=== PATIENT | female | born 1960 | race Caucasian/White ===

== ENCOUNTER → 2016-03-22 | Day surgery (SDC) | payer OTHER ==
[2016-03-05 11:46] LABS: BASO % 1.3 %; BASO ABS # 0.07 K/uL (0-0.2); COMPLETE YES; EOS % 3.6 %; HEMATOCRIT 38.9 % (37-47); IG% 0.2 %; LYMPH % 40.8 %; LYMPH ABS # 2.26 K/uL (1.2-3.4); MEAN CELL VOLUME 88.2 fL (80-100); MEAN CORPUSCULAR HGB CONC 32.9 g/dl (32-36); MEAN PLATELET VOLUME 10.9 fL (7.4-10.4); NEUT % 47.1 %; PLATELET COUNT 254 K/uL (130-400); RED BLOOD COUNT 4.41 M/uL (4.2-5.4); WHITE BLOOD COUNT 5.54 K/uL (4.8-10.8)
[2016-03-05 11:59] LABS: INR 0.9 (0.9-1.1)
[2016-03-16 11:49] VITALS: Ht 154.9 cm; Wt 81.8 kg
[~2016-03-22] VITALS: Ht 154.9 cm; Wt 81.8 kg
[~2016-03-22] MED LIST: ASPCH81X PO; ASPI325T45 PO; ATROPINE SULFATE 0.1 MG/ML 5ML SYR IV PRN; BUPIVACAINE/EPINEPHRINE 0.5% MPF 1:200,000 30 ML VIAL ONE; CLINDAMYCIN PHOS 150 MG/ML 2 ML VIAL IV SCH; DEXAMETHASONE SOD INJ 4 MG/ML VIAL ONE; EpHEDrine SULFATE INJ 50 MG/ML AMP IV PRN; EpINEphrine INJ 1MG/ML AMP 1 MG/ML AMP ONE; FENTANYL CITRATE INJ 50 MCG/1 ML 2 ML VIAL ONE; FIBER; HYDR-5688 PO; LACTATED RINGER'S 1000ML 1,000 ML IV SCH; LIDOCAINE HCL 1% 20 ML VIAL ONE; LIDOCAINE HCL 2% 2 ML VIAL (20MG/ML) ONE; METOCLOPRAMIDE HCL INJ 5 MG/ML 2 ML VIAL IV PRN; MIDAZOLAM HCL 1 MG/ML 2ML VIAL ONE; MULT-506 PO; MoRPHine SULFATE 4 MG/ML 1 ML CARP\\VIAL IV PRN; OMEP20CA59 PO; ONDANSETRON INJ 2 MG/ML 2 ML VIAL IV PRN; ONDANSETRON INJ 2 MG/ML 2 ML VIAL ONE; OXYCODONE/ACETAMINOPHEN 5-325 TAB PO PRN; PROPOFOL IV EMULSION 10 MG/ML 20 ML VIAL IV ONE; SODIUM CHLORIDE 0.9% 1000ML 1,000 ML IV SCH
--- NOTE | 2016-03-22 08:31 | History & Physical Bridge - [place] ---
H&P Re-Evaluation Bridge Note: I have examined the patient, reviewed the History & Physical and in the interval since the performance of the History & Physical I have noted the following changes of clinical significance: No changes noted
--- NOTE | 2016-03-22 10:07 | [facility] Post Operative Brief Note ---
Immediate Operative Summary Operative Date Mar 22, 2016. Pre-Operative Diagnosis Right knee medial meniscus tear, chrondomalcia Post-Operative Diagnosis same with loose body and synovitiis Procedure(s) Performed Right Knee Arthroscopy, Medial and lateral partial menisectomy, Extensive Debridement , Chondroplasty, Exam Under Anesthesia, Remove loose body Surgeon Dr Butterfield [employer] Field Coordinator Surgeon(s) Dr Kiara Coelho Estimated Blood Loss 10 Findings same Specimens 0 Drains none Anesthesia general Complication(s) None Disposition Recovery Room / PACU
--- NOTE | 2016-03-22 10:10 | Discharge Instructions-SurgCtr ---
Discharge Instructions Visit Reason for Visit: Right Knee Medial Meniscus Tear, Chondromalacia Discharge Discharge Diagnosis / Problem: right knee, medial/lateral meniscus tears, chondromalacia, loose body Discharge Goals Goal(s): Decrease discomfort, Improve function, Increase independence Activity Recommendations Activity Limitations: as noted below Lifting Limitations: gradually increase as tolerated Exercise/Sports Limitations: gradually increase as tolerated May Resume Sexual Activity: when tolerated Shower/Bathe: keep incision dry Driving or Machine Use: once off narcotic pain medication and range of motion improves Weightbearing Status: Right weightbearing (as tolerated) Anesthesia . Post Anesthesia Instructions: If you have had General Anesthesia or IV Sedation: * Do not drive today. * Resume driving when surgeon permits. * Do not make important decisions or sign legal documents today. * Call surgeon for: 1. Temperature elevations greater than 101 degrees F. 2. Uncontrollable pain. 3. Excessive bleeding. 4. Persistent nausea and vomiting. 5. Medication intolerance (nausea, vomiting or rash). * For nausea and vomiting use only clear liquids such as: tea, soda, bouillon until nausea subsides, then gradually increase diet as tolerated. * If you have any concerns or questions, call your surgeon's office. If physician is unavailable and it is an emergency, call 911 or go to the nearest emergency room. . Instructions / Follow-Up Instructions / Follow-Up DIET: * Resume previous diet. MEDICATIONS: * Please take your prescriptions as instructed at your pre-op appointment and/ or see medication discharge instructions listed above. * If concerns develop, call your physician's office at . SPECIAL CARE INSTRUCTIONS: * Ice/Elevate as instructed. * Keep dressing clean, dry, intact. * Your surgical extremity may be discolored due to prepping agents used on the skin. A bluish-green tint is a normal variant and should not cause alarm. Call your doctor at [phone] if: * Temperature above 101 degrees * Pain not relieved by pain medicine ordered * There is increased drainage or redness from any incision * You have any unanswered questions, problems or concerns. FOLLOW UP VISIT: * If not already scheduled, please call the office at to schedule a follow-up appointment. Diet Recommendations Home Diet: resume previous diet Procedures Procedures Performed: Right Knee Arthroscopy, Medial and lateral partial menisectomy, Extensive Debridement , Chondroplasty, Exam Under Anesthesia, Remove loose body Pending Studies Studies pending at discharge: no Medical Emergencies . Who to Call and When: Medical Emergencies: If at any time you feel your situation is an emergency, please call 911 immediately. . Non-Emergent Contact Non-Emergency issues call your: Primary Care Provider . . "Provider Documentation" section prepared by Akin Lemus. [place] Drug Monitoring Program Search Results: no issues identified
--- NOTE | 2016-03-22 10:14 | [facility] Operative Report ---
Operative Report Operative Date Mar 22, 2016. Pre-Operative Diagnosis Right knee medial meniscus tear, chrondomalcia Post-Operative Diagnosis same with loose body and synovitiis Procedure(s) Performed 1) Right Knee Arthroscopy, Extensive Debridement. 2) Chondroplasty: P, MC, LTP with Medial and lateral partial menisectomies. 3) Removal loose body. 4) Exam Under Anesthesia. Surgeon Dr Butterfield Coach Wirer Surgeon(s) Dr Kiara Coelho Estimated Blood Loss 10 Findings The right knee was examined under anesthesia. Range of motion was 0-130. Ligamentous examination exhibited: stable Flo, posterior drawer, varus and valgus stress at 0 & 30 degrees. ARTHROSCOPIC FINDINGS: There was significant synovitis in the suprapatellar pouch and loose body. 1) PATELLOFEMORAL JOINT: The articular cartilage of the Patella had Outerbridge type II changes and Trochlea type I changes. There was an engaging medial plica. 2) GUTTERS: No loose bodies. 3) MEDIAL COMPARTMENT: The articular cartilage of the femur and Tibia had Outerbridge type IV changes. The femur was significant from full extension down to 90 of flexion. The tibia had full thickness articular cartilage loss from the medial aspect near the apex anteriorly. The medial meniscus had degenerative tear posteriorly, at the apex, and anteriorly.. 4) ACL/PCL: They were both visualized and probed to be intact. 5) LATERAL COMPARTMENT: The lateral compartment was then entered in a figure-of- four position. The femoral articular cartilage was normal and tibial articular cartilage had Outerbridge type III changes centrally. The lateral meniscus had degenerative fraying from the posterior horn all the way to the anterior horn. Fluids (cc crystalloids) 800 Specimens 0 Drains n/a Anesthesia LMA Complication(s) None Disposition Recovery Room / PACU (Stable) Implants n/a Indications This is a 55-year-old female who has clinical and MRI findings consistent with meniscus tear and chondromalacia. I recommended that a right knee arthroscopy be performed with meniscus repair vs debridement, possible chondroplasty versus microfracture. The patient understands the risks of surgery, which include but not limited to: bleeding, infection, re-operation, damage to nerves and arteries , continued knee pain, progression of OA, DVT, and a 2-5% risk of becoming worse after surgery. The patient understands all of these instructions and explanations, all of his questions have been satisfactorily addressed and the patient has elected to proceed. Informed consent was signed. Description of Procedure The patient was taken to the Operating Room and placed in the supine position after general anesthetic was administered. My initials and a multidisciplinary time-out were used to identify the right leg as the correct operative limb. Prior to the incision, 600 mg of intravenous clindamycin was given. The right knee was then injected with 20cc of a 50:50 mix of 1% Lidocaine plain and 0.5% Bupivacaine with epinephrine in a sterile fashion using the superolateral portal. The right leg was then prepped and draped in a standard sterile fashion. The anterolateral, anteromedial, and superolateral portals were injected with the 50:50 mixture noted above, for a total of 10cc, in the standard fashion. An anterolateral arthroscopic portal was established with an 11-blade. Next, the arthroscope was introduced into the knee. A diagnostic arthroscopy commenced and both the superolateral and anteromedial portals were established under direct visualization using a spinal needle followed by an 11 blade in the standard fashion. The above findings were observed during the diagnostic arthroscopy. The synovitis and anterior fat pad were debrided as they were encounter with mechanical shaver and Coolcut. The loose body was removed through the arthroscopic trocar as it was encountered. The medial plicae was excised with a combination of hand punches, mechanical shaver and Coolcut. The articular cartilage damage was debrided back to stable margins as they were encountered with mechanical shaver. The medial and lateral meniscus tears were evaluated and found to be irreparable and were debrided back to stable margin with hand punches, and mechanical shaver. The knee was copiously irrigated. The arthroscopic instruments were then removed. The portals were closed with 3-0 Prolene in a standard fashion. The wound was dressed with Xeroform gauze, sterile gauze, ABDs, sterile Webril, and a foot to thigh Jamie bandage. The patient was then transferred to the Recovery Room in stable condition. The sponge and needle counts were correct. Post-op Instructions: The patient will be WBAT. The patient may remove the operative dressing on Post -Op Day #2 and apply Band-Aids to the wounds. The patient may shower in 72 hours and is to wear the REY for 2 weeks on the operative limb. The patient is to use the pain medicine as needed and take the ASA for 2 weeks. The patient was also given a handout for home quad strengthening and seated self-assisted ROM exercises, which they may begin tomorrow. The patient was given a prescription for PT and is scheduled for an appointment later this week. The patient is to follow up with me in 10-15 days. I attest to the content of the Intraoperative Record and any orders documented therein. Any exceptions are noted below.
[2016-03-22] MEDS: FENTANYL CITRATE INJ 50 MCG/1 ML 2 ML VIAL IV PRN ×2 (10:40→11:02)
[2016-03-22 11:28] VITALS: TEMP 36.5
[2016-03-22 12:05] VITALS: BP 129/80; PULSE 77; O2SAT 95
--- NOTE | 2016-03-22 12:09 | Anesthesia Progress Nt - [facility] ---
Anesthesia Post Op Note Date & Time Mar 22, 2016 at 12:09 Vital Signs Pain Intensity: 0 Vital Signs Past 12 Hours Date Time Temp Pulse Resp B/P Pulse Ox O2 Delivery O2 Flow Rate FiO2 03/22/16 12:05 77 16 129/80 95 Room Air 03/22/16 11:28 36.5 75 16 128/78 95 Room Air 03/22/16 11:18 110/81 03/22/16 11:17 75 14 03/22/16 11:17 75 14 90 03/22/16 11:14 113/70 03/22/16 11:12 83 14 03/22/16 11:12 84 14 92 03/22/16 11:11 75 20 96 03/22/16 11:11 78 20 03/22/16 11:09 137/74 03/22/16 11:06 78 16 03/22/16 11:06 79 16 95 03/22/16 11:03 132/77 03/22/16 11:01 77 11 03/22/16 11:01 76 11 95 03/22/16 11:00 77 12 03/22/16 11:00 77 12 95 03/22/16 10:58 121/80 03/22/16 10:55 82 16 89 03/22/16 10:55 83 16 03/22/16 10:54 36.6 78 16 121/80 95 Mask 3 03/22/16 10:54 36.8 77 16 130/72 94 03/22/16 10:45 76 11 03/22/16 10:45 77 11 95 03/22/16 10:43 123/76 03/22/16 10:40 83 16 03/22/16 10:40 83 16 96 03/22/16 10:38 132/74 03/22/16 10:35 82 16 03/22/16 10:35 82 16 98 03/22/16 10:34 87 15 96 03/22/16 10:34 87 15 03/22/16 10:33 131/76 03/22/16 10:29 86 16 03/22/16 10:29 84 16 97 03/22/16 10:28 129/74 03/22/16 10:24 91 17 96 03/22/16 10:24 89 17 03/22/16 10:23 127/74 03/22/16 10:22 88 16 03/22/16 10:22 36.8 88 20 127/73 95 Mask 8 03/22/16 10:22 87 16 97 03/22/16 08:14 37.0 90 20 139/72 95 Room Air Notes Mental Status: alert / awake / arousable, participated in evaluation Pt Amnestic to Procedure: Yes Nausea / Vomiting: adequately controlled Pain: adequately controlled Airway Patency, RR, SpO2: stable & adequate BP & HR: stable & adequate Hydration State: stable & adequate Anesthetic Complications: no major complications apparent
== END | disposition home or self-care (01) ==
LOC: X.SURG 07:54
PROVIDERS: ATTEND Orthopaedic Surgery Sports Medicine
DX: M23.351 Other meniscus derangements, posterior horn of lateral meniscus, right knee (principal); M23.306 Other meniscus derangements, unspecified meniscus, right knee; M94.261 Chondromalacia, right knee; M23.41 Loose body in knee, right knee; E66.9 Obesity, unspecified; M25.561 Pain in right knee

== ENCOUNTER → 2016-06-29 | Day surgery (SDC) | payer OTHER ==
[2016-06-14 11:02] VITALS: BMI 34.0
[~2016-06-29] VITALS: Ht 154.9 cm; Wt 81.8 kg
[~2016-06-29] MED LIST changes: -ASPI325T45 PO; -ATROPINE SULFATE 0.1 MG/ML 5ML SYR IV PRN; -BUPIVACAINE/EPINEPHRINE 0.5% MPF 1:200,000 30 ML VIAL ONE; -CLINDAMYCIN PHOS 150 MG/ML 2 ML VIAL IV SCH; -DEXAMETHASONE SOD INJ 4 MG/ML VIAL ONE; -EpHEDrine SULFATE INJ 50 MG/ML AMP IV PRN; -EpINEphrine INJ 1MG/ML AMP 1 MG/ML AMP ONE; -FENTANYL CITRATE INJ 50 MCG/1 ML 2 ML VIAL ONE; -FIBER; -HYDR-5688 PO; -LACTATED RINGER'S 1000ML 1,000 ML IV SCH; -LIDOCAINE HCL 1% 20 ML VIAL ONE; -METOCLOPRAMIDE HCL INJ 5 MG/ML 2 ML VIAL IV PRN; -MIDAZOLAM HCL 1 MG/ML 2ML VIAL ONE; -MoRPHine SULFATE 4 MG/ML 1 ML CARP\\VIAL IV PRN; -ONDANSETRON INJ 2 MG/ML 2 ML VIAL IV PRN; -ONDANSETRON INJ 2 MG/ML 2 ML VIAL ONE; -OXYCODONE/ACETAMINOPHEN 5-325 TAB PO PRN; -SODIUM CHLORIDE 0.9% 1000ML 1,000 ML IV SCH
[2016-06-29 10:53] VITALS: Ht 154.9 cm; Wt 81.8 kg
--- NOTE | 2016-06-29 11:13 | Endo History and Physical ---
History & Physical Date of Service: Jun 29, 2016. Chief Complaint: FAMILY HX COLON CANCER (MOTHER) ,SCREENINGFOR COLON CANCER Referring Physician: DR EGAN History of Present Illness 55 yo CF who presents for colonoscopy secondary to family history of colon cancer. Past Surgical History Hx Cardiac Surgery: No Hx Internal Defibrillator: No Hx Pacemaker: No Hx Abdominal Surgery: Yes (REN) Hx of Implantable Prosthesis: No Hx Post-Op Nausea and Vomiting: No Hx Cancer Surgery: No Hx Thoracic Surgery: No Hx Orthopedic: Yes (RT KNEE ARTHROSCOPY) Hx Urinary Tract Surgery: No Family History Colon CA Social History Smoking Status: Never Smoker Hx Substance Use: No Hx Alcohol Use: No Allergies Coded Allergies: Penicillins (Verified Allergy, Unknown, RASH, 03/22/16) Current Medications Reported Home Medications Medications Dose Route/Sig Max Daily Dose Days Date Category Aspirin Chewable (Aspirin) 81 Mg Chew 81 Mg PO QAM 06/14/16 Reported Multivitamin (Multivitamins) Tab 1 Tab PO QAM 03/16/16 Reported Prilosec (Omeprazole) 20 Mg Capcr 20 Mg PO QAM 03/16/16 Reported Vital Signs Weight (Kilograms): 81.82 Height (Feet): 5 Height (Inches): 1 Date Time Temp Pulse Resp B/P Pulse Ox O2 Delivery O2 Flow Rate FiO2 06/29/16 10:55 36.9 90 20 123/69 94 Room Air Physical Exam General Appearance: WD/WN, no apparent distress Respiratory/Chest: Auscultation: breath sounds normal Cardiovascular: Heart Auscultation: RRR Abdomen: Bowel Sounds: normal Inspection & Palpation: soft, non-distended, no tenderness, guarding & rebound Assessment and Plan Assessment: 55 yo CF who presents for colonoscopy secondary to family history of colon cancer. Plan: Proceed with colonoscopy.
--- NOTE | 2016-06-29 12:51 | GI REPORT ---
Procedure Date: 06/29/2016 11:59 AM Procedure: Colonoscopy Indications: Family history of colon cancer in a first-degree relative Medicines: Monitored Anesthesia Care Complications: No immediate complications. Estimated Blood Loss: Estimated blood loss: none. Procedure: Pre-Anesthesia Assessment: - Prior to the procedure, a History and Physical was performed, and patient medications and allergies were reviewed. The patient's tolerance of previous anesthesia was also reviewed. The risks and benefits of the procedure and the sedation options and risks were discussed with the patient. All questions were answered, and informed consent was obtained. Prior Anticoagulants: The patient has taken aspirin, last dose was 3 days prior to procedure. ASA Grade Assessment: II - A patient with mild systemic disease. After reviewing the risks and benefits, the patient was deemed in satisfactory condition to undergo the procedure. After I obtained informed consent, the scope was passed under direct vision. Throughout the procedure, the patient's blood pressure, pulse, and oxygen saturations were monitored continuously. The scope was introduced through the anus and advanced to the terminal ileum. The colonoscopy was performed without difficulty. The patient tolerated the procedure well. The quality of the bowel preparation was good. The terminal ileum, ileocecal valve, appendiceal orifice, and rectum were photographed. Findings: A 5 mm polyp was found in the sigmoid colon. The polyp was sessile. The polyp was removed with a hot snare. Resection and retrieval were complete. Non-bleeding internal hemorrhoids were found during retroflexion. The hemorrhoids were small. Impression: - One 5 mm polyp in the sigmoid colon, removed with a hot snare. Resected and retrieved. - Non-bleeding internal hemorrhoids. Recommendation: - Resume previous diet. - Continue present medications. - Repeat colonoscopy for surveillance based on pathology results. - Return to primary care physician as previously scheduled. Reinaldo Mcnair DO 06/29/2016 12:50:31 PM This report has been signed electronically. Note Initiated On: 06/29/2016 11:59 AM I attest to the content of the Intraoperative Record and orders documented therein, exceptions below
--- NOTE | 2016-06-29 12:53 | Discharge Instructions ---
Endoscopy Patient Instructions Date / Procedure(s) Performed Jun 29, 2016. Colonoscopy Allergy Information Coded Allergies: Penicillins (Verified Allergy, Unknown, RASH, 03/22/16) Discharge Date / Findings Jun 29, 2016. Colon polyp Internal hemorrhoids Medication Instructions Stopped Medication(s): ASPIRIN LAST DOSE 06/26/16 MULTIVITAMIN LAST DOSE 06/26/16 PRILOSEC LAST DOSE 06/26/16 OK to resume all medications today as prescribed Reported Home Medications Medications Dose Route/Sig Max Daily Dose Days Date Category Aspirin Chewable (Aspirin) 81 Mg Chew 81 Mg PO QAM 06/14/16 Reported Multivitamin (Multivitamins) Tab 1 Tab PO QAM 03/16/16 Reported Prilosec (Omeprazole) 20 Mg Capcr 20 Mg PO QAM 03/16/16 Reported Provider Instructions Activity Restrictions - No exercising or heavy lifting for 24 hours. - Do not drink alcohol the day of the procedure. - Do not drive a car or operate machinery until the day after the procedure. - Do not make any important decisions or sign important papers in 24 hours after the procedure. Following Day: - Return to full activity which may include returning to work/school. Diet Start your diet with liquids and light foods (jello, soup, juice, toast). Then eat your usual diet if not nauseated. Treatment For Common After Affects For mild abdominal pain, bloating, or excessive gas: - Rest - Eat lightly - Lie on right side Follow-Up Information Follow-up with DR EGAN as scheduled Anesthesia Information What You Should Know You have had a procedure that required some medicine to reduce anxiety and discomfort. This treatment is called moderate sedation. After receiving the treatment, you may be sleepy, but you will be able to breathe on your own. The effects of the treatment may last for several hours. Follow these instructions along with Activity/Diet recommendations noted above: * Do NOT do anything where dizziness or clumsiness would be dangerous. * Rest quietly at home today, then you can be up and about tomorrow. * Have a responsible person stay with you the rest of today. * You may have had an I.V. today. If so, you may take the dressing off later today. Recommendations Call your doctor if: * Trouble breathing * Continuous vomiting for more than 24 hours * Temperature above 101 degrees * Severe abdominal pain or bloating * Pain not relieved by pain medicine ordered * There is increased drainage or redness from any incision * A large amount of rectal bleeding greater than 2-3 tablespoons. (If you had a polyp/s removed or have hemorrhoids, a small amount of blood - from the rectum is to be expected.) * You have any unanswered questions or concerns. IN THE EVENT OF A SERIOUS EMERGENCY, GO TO THE NEAREST EMERGENCY ROOM Your discharge instructions were prepared by provider Reinaldo Mcnair. Patient Instructions Signature Page Clare Valdovinos Patient (or Guardian) Signature/Date: I have read and understand the instructions given to me by my caregivers. Caregiver/RN/Doctor Signature/Date: The above-named patient and/or guardian has received patient instructions on this date. + Original Patient Signature Page (only) stays with chart. Please make copy for patient.
--- NOTE | 2016-06-29 13:01 | Anesthesiology Progress Note ---
Anesthesia Post Op Note Date & Time Jun 29, 2016 at 13:00 Vital Signs Pain Intensity: 0 Vital Signs Past 12 Hours Date Time Temp Pulse Resp B/P Pulse Ox O2 Delivery O2 Flow Rate FiO2 06/29/16 12:48 36.9 95 20 99/62 95 Room Air 06/29/16 10:55 36.9 90 20 123/69 94 Room Air Notes Mental Status: alert / awake / arousable, participated in evaluation Pt Amnestic to Procedure: Yes Nausea / Vomiting: adequately controlled Pain: adequately controlled Airway Patency, RR, SpO2: stable & adequate BP & HR: stable & adequate Hydration State: stable & adequate Anesthetic Complications: no major complications apparent
[2016-06-29 13:17] VITALS: BP 103/81; PULSE 84; O2SAT 9
== END | disposition home or self-care (01) ==
LOC: C.GI 10:29
PROVIDERS: ATTEND Internal Medicine
DX: Z12.11 Encounter for screening for malignant neoplasm of colon (principal); D12.5 Benign neoplasm of sigmoid colon; K64.8 Other hemorrhoids; Z80.0 Family history of malignant neoplasm of digestive organs; Z88.0 Allergy status to penicillin; E66.9 Obesity, unspecified; Z68.34 Body mass index [BMI] 34.0-34.9, adult; Z98.890 Other specified postprocedural states

== ENCOUNTER → 2016-07-20 | Outpatient (CLI) | payer OTHER ==
[~2016-07-20] MED LIST changes: +ATOR10TA82 PO; +CYAN50TA2 PO; +FIBE1CHW8 PO; +GLC/500 PO; +IBUP-1050 PO; -LIDOCAINE HCL 2% 2 ML VIAL (20MG/ML) ONE; -PROPOFOL IV EMULSION 10 MG/ML 20 ML VIAL IV ONE
--- NOTE | 2016-07-20 16:04 | MAMMOGRAPHY REPORT ---
BILATERAL DIGITAL SCREENING MAMMOGRAM TOMOSYNTHESIS WITH CAD: 07/20/2016 CLINICAL HISTORY: Routine screening. Patient has no complaints. TECHNIQUE: Breast tomosynthesis in addition to standard 2D mammography was performed. Current study was also evaluated with a Computer Aided Detection (CAD) system. COMPARISON: Comparison is made to exams dated: 07/17/2015 ultrasound and 07/17/2015 mammogram - [facility]. BREAST COMPOSITION: There are scattered areas of fibroglandular density in both breasts. FINDINGS: The parenchymal pattern is unchanged. No developing mass, architectural distortion or clu ster of suspicious microcalcifications is seen in either breast. IMPRESSION: ACR BI-RADS CATEGORY 2: BENIGN There is no mammographic evidence of malignancy. A 1 year screening mammogram is recommended. The p atient will receive written notification of the results. Approximately 10% of breast cancers are not detected with mammography. A negative mammographic repor t should not delay biopsy if a clinically suggestive mass is present. Edita Woodward M.D. ay/:07/20/2016 15:25:43 Collar Cutter: Farzana VALADEZ(R)(Thad), [facility] letter sent: Normal 1/2 BI-RADS Code: ACR BI-RADS Category 2: Benign
== END | disposition home or self-care (01) ==
LOC: C.MAMM 14:35
PROVIDERS: ATTEND Internal Medicine
DX: Z12.31 Encounter for screening mammogram for malignant neoplasm of breast (principal)

== ENCOUNTER → 2016-08-23 | Outpatient (CLI) | payer OTHER ==
[2016-08-23 12:34] LABS: ESTIMATED AVERAGE GLUCOSE 134 mg/dl; HA1C FLAG Normal (Normal)
[2016-08-23 12:35] LABS: CHOLESTEROL/HDL RATIO 4.8
== END ==
LOC: C.LABBFT 08:52
PROVIDERS: ATTEND Physician Assistant Medical
DX: E78.5 Hyperlipidemia, unspecified (principal); R73.01 Impaired fasting glucose

== ENCOUNTER → 2016-09-28 | Outpatient (CLI) | payer OTHER ==
[~2016-09-28] MED LIST changes: -ATOR10TA82 PO; -CYAN50TA2 PO; -FIBE1CHW8 PO; -GLC/500 PO; -IBUP-1050 PO
== END | disposition home or self-care (01) ==
LOC: C.MAMM 13:35
PROVIDERS: ATTEND Internal Medicine
DX: Z78.0 Asymptomatic menopausal state (principal)

== ENCOUNTER → 2016-12-28 | Outpatient (CLI) | payer OTHER ==
--- NOTE | 2016-12-28 13:26 | DIAGNOSTIC IMAGING REPORT ---
L FOOT MIN 3 VIEWS HISTORY: 56 years-old Female LEFT FOOT PAIN acute left foot pain. COMPARISON: None available TECHNIQUE: 3 views of the left foot. FINDINGS: Moderate plantar enthesophyte of the calcaneus. Mild dorsal midfoot spurring. Mild interphalangeal and first metatarsal-phalangeal degenerative changes. Os intermetatarsum noted interposed between the first and second metatarsal bases. There is mild medial and lateral cortical thickening of the fourth mid diaphyseal metatarsal. No acute fracture or dislocation. No opaque foreign body. IMPRESSION: 1. No acute fracture or dislocation. 2. Mild medial and lateral cortical thickening of the mid diaphyseal fourth metatarsal may reflect healing stress response/healing stress fracture. 3. Mild degenerative changes as above. The above report was generated using voice recognition software. It may contain grammatical, syntax or spelling errors. Electronically signed by: Keaton Joaquin M.D. 12/28/2016 1:25 PM Dictated Date/Time: 12/28/2016 1:21 PM
== END | disposition home or self-care (01) ==
LOC: C.RDSM 13:15
PROVIDERS: ATTEND Physician Assistant
DX: R52 Pain, unspecified (principal)

== ENCOUNTER → 2016-12-29 | Outpatient (CLI) | payer OTHER ==
[2016-12-29 12:50] LABS: ALT/SGPT 30 U/L (12-78); AST/SGOT 16 U/L (15-37); BLOOD UREA NITROGEN 14 mg/dl (7-18); BUN/CREATININE RATIO 14.3 (10-20); CALCIUM 8.8 mg/dl (8.5-10.1); CARBON DIOXIDE 25 mmol/L (21-32); CHLORIDE 107 mmol/L (98-107); CREATININE 0.94 mg/dl (0.60-1.20); GLUCOSE 130 mg/dl (70-99); POTASSIUM 4.4 mmol/L (3.5-5.1); SODIUM 141 mmol/L (136-145)
[2016-12-29 12:51] LABS: ESTIMATED AVERAGE GLUCOSE 128 mg/dl; HA1C FLAG Normal (Normal)
[2016-12-29 12:53] LABS: ALB/GLOB RATIO 0.9 (0.9-2); ALKALINE PHOSPHATASE 117 U/L (45-117); CHOLESTEROL 143 mg/dl (0-200); CHOLESTEROL/HDL RATIO 2.9; HDL CHOLESTEROL 49 mg/dl; LDL CHOLESTEROL CALCULATED 70 mg/dl; TRIGLYCERIDES 118 mg/dl (0-150); VERY LOW DENSITY LIPOPROT CALC 24 mg/dl
== END | disposition home or self-care (01) ==
LOC: C.LABBFT 08:12
PROVIDERS: ATTEND Internal Medicine
DX: E78.5 Hyperlipidemia, unspecified (principal); R73.01 Impaired fasting glucose

== ENCOUNTER 2017-02-17 11:08 | Emergency (ER) | payer OTHER ==
[~2017-02-17] VITALS: Ht 154.9 cm; Wt 83.4 kg
[2017-02-17 11:12] VITALS: TEMP 36.7; Ht 154.9 cm; Wt 83.4 kg
[2017-02-17 12:11] LABS: HEMATOCRIT 41.3 % (37-47); MEAN CELL VOLUME 89.4 fL (80-100); MEAN CORPUSCULAR HGB CONC 32.4 g/dl (32-36); MEAN PLATELET VOLUME 10.3 fL (7.4-10.4); PLATELET COUNT 265 K/uL (130-400); RED BLOOD COUNT 4.62 M/uL (4.2-5.4); WHITE BLOOD COUNT 7.25 K/uL (4.8-10.8)
[2017-02-17 12:16] LABS: PROTHROMBIN TIME (PATIENT) 10.1 SECONDS (9.0-12.0)
[2017-02-17] MEDS ORDERED: ASPIRIN 81 MG CHEW PO STA (12:18)
[2017-02-17] MEDS ORDERED: LIDOCAINE HCL 2% VISC SOLN 20 ML UDC PO STA (12:22)
[2017-02-17] MEDS ORDERED: ALUMINUM/MAGNESIUM SUSP 30 ML UDC PO STA (12:22)
[2017-02-17 12:28] LABS: BUN/CREATININE RATIO 16.4 (10-20); CALCIUM 9.1 mg/dl (8.5-10.1); CREATININE 0.78 mg/dl (0.60-1.20); POTASSIUM 3.9 mmol/L (3.5-5.1)
[2017-02-17] MEDS ORDERED: IBUP-1050 PO (12:31)
--- NOTE | 2017-02-17 12:32 | EMERGENCY ROOM VISIT NOTE ---
History Report prepared by Aaron: Genesis Rees Under the Supervision of: Dr. Jacquelin Huang M.D. First contact with patient: 12:09 Chief Complaint: CHEST PAIN Stated Complaint: CHEST PAIN, INDIGESTION, CLAMMY HANDS Nursing Triage Summary: patient states she has had chest pains since tuesday off and on. patient denies any shortness of breath. hx of acid relux. History of Present Illness The patient is a 56 year old female who presents to the Emergency Room with complaints of persistent chest pain that began this morning when she woke. She currently rates her discomfort as a 2/10 in severity. The patient describes her pain as indigestion. She reports that her left hand was clammy and noted discomfort to the left hand. The patient denies ever having this in the past. She denies any active medical problems. The patient states that she takes 81 mg of aspirin daily. She reports that she takes Ibuprofen 3-4 times per week for knee pain. The patient reports increased fatigue. She states that she becomes short of breath with exertion. Source of History: patient Onset: this morning when she woke Position: chest Symptom Intensity: 2/10 Quality: other (indigestion) Timing: other (persistent) Associated Symptoms: + SOB (with exertion), + fatigue Review of Systems See HPI for pertinent positives & negatives. A total of 10 systems reviewed and were otherwise negative. Past Medical & Surgical Surgical Problems: (1) H/O: hysterectomy (2) Hx of arthroscopy of right knee Family History FH: colon cancer Social History Smoking Status: Never Smoker Smokeless Tobacco Use: No Alcohol Use: none Marital Status: Housing Status: lives with significant other Occupation Status: employed Current/Historical Medications Scheduled Atorvastatin (Lipitor), 10 MG PO PM Cyanocobalamin (Vitamin B-12), Unknown Dose PO DAILY Fiber (Fiber Adult Gummies 2 gm), 1 TAB PO DAILY Ibuprofen (Advil), 400-600 MG PO DAILY Metformin Hcl (Glucophage), 500 MG PO BID Multivitamin (Multivitamin), 1 TAB PO QAM Omeprazole (Prilosec), 40 MG PO QAM Allergies Coded Allergies: Penicillins (Verified Allergy, Unknown, RASH, 02/17/17) Physical Exam Vital Signs Date Time Temp Pulse Resp B/P (MAP) Pulse Ox O2 Delivery O2 Flow Rate FiO2 02/17/17 15:03 86 128/68 94 02/17/17 14:13 127/66 02/17/17 14:08 84 16 94 02/17/17 13:38 79 16 97 02/17/17 13:08 78 18 96 02/17/17 12:38 79 18 93 02/17/17 12:29 130/68 02/17/17 12:08 82 02/17/17 12:08 80 18 92 02/17/17 11:39 80 129/74 92 Room Air 02/17/17 11:30 129/74 02/17/17 11:17 95 Room Air 02/17/17 11:12 36.7 90 18 129/73 95 Room Air Physical Exam Vital signs reviewed. General: Well-appearing female, in no significant distress. HEENT: No scleral icterus, PERRLA, neck supple. Atraumatic. Cardiovascular: Regular rate and rhythm, no extra sounds. Pulmonary: Clear to auscultation bilaterally, normal work of breathing. Abdomen: Soft, nontender, nondistended, positive bowel sounds. Musculoskeletal: Atraumatic, no peripheral edema. Neurologic: Patient awake alert and oriented x 3, full strength in all 4 extremities. Cranial nerves 2 through 12 grossly intact. Skin: Warm, dry, no rash Medical Decision & Procedures ER Provider Diagnostic Interpretation: X-ray results as stated below per interpretation by me and the radiologist: CHEST ONE VIEW PORTABLE CLINICAL HISTORY: CHEST PAIN dyspnea COMPARISON STUDY: No previous studies for comparison. FINDINGS: The bones soft tissues and hemidiaphragms are normal. The cardiomediastinal silhouette is normal. The lungs are clear. The pulmonary vasculature is normal. IMPRESSION: Negative chest. The above report was generated using voice recognition software. It may contain grammatical, syntax or spelling errors. Electronically signed by: Real Kingsley M.D. 02/17/2017 12:36 PM Dictated Date/Time: 02/17/2017 12:36 PM Laboratory Results 02/17/17 11:30 02/17/17 11:30 Test 02/17/17 11:30 02/17/17 14:11 Red Blood Count 4.62 M/uL (4.2-5.4) Mean Corpuscular Volume 89.4 fL (80-100) Mean Corpuscular Hemoglobin 29.0 pg (25-34) Mean Corpuscular Hemoglobin Concent 32.4 g/dl (32-36) RDW Standard Deviation 41.6 fL (36.4-46.3) RDW Coefficient of Variation 12.9 % (11.5-14.5) Mean Platelet Volume 10.3 fL (7.4-10.4) Prothrombin Time 10.1 SECONDS (9.0-12.0) Prothromb Time International Ratio 1.0 (0.9-1.1) Activated Partial Thromboplast Time 25.4 SECONDS (21.0-31.0) Partial Thromboplastin Ratio 1.0 Anion Gap 4.0 mmol/L (3-11) Est Creatinine Clear Calc Drug Dose 77.9 ml/min Estimated GFR () 97.8 Estimated GFR (Non- 84.4 BUN/Creatinine Ratio 16.4 (10-20) Calcium Level 9.1 mg/dl (8.5-10.1) Total Bilirubin 0.6 mg/dl (0.2-1) Aspartate Amino Transf (AST/SGOT) 18 U/L (15-37) Alanine Aminotransferase (ALT/SGPT) 38 U/L (12-78) Alkaline Phosphatase 116 U/L (45-117) Total Creatine Kinase 107 U/L (26-192) Creatine Kinase MB 0.8 ng/ml (0.5-3.6) Creatine Kinase MB Ratio 0.7 (0-3.0) Total Protein 8.0 gm/dl (6.4-8.2) Albumin 3.7 gm/dl (3.4-5.0) Globulin 4.3 gm/dl (2.5-4.0) Albumin/Globulin Ratio 0.9 (0.9-2) Thyroid Stimulating Hormone (TSH) 1.150 uIu/ml (0.300-4.500) Free Thyroxine 1.05 ng/dl (0.80-1.60) Free Triiodothyronine 3.29 pg/ml (2.30-4.20) Bedside Troponin I < 0.030 ng/ml (0-0.045) Laboratory results per my review. Medications Administered Medications (Trade) Dose Ordered Sig/Jose Route Start Time Stop Time Status Last Admin Dose Admin Lidocaine HCl (Viscous Lidocaine 2% Soln) 10 ml NOW STAT PO 12/7/17 12:22 02/17/17 12:23 DC 02/17/17 12:29 10 ML Al Hydroxide/Mg Hydroxide (Maalox Susp) 30 ml NOW STAT PO 02/17/17 12:22 02/17/17 12:23 DC 02/17/17 12:29 30 ML ECG Indication: chest pain Rate (beats per minute): 76 Rhythm: normal sinus Findings: no acute ischemic change, no ectopy ED Course 1215: Past medical records reviewed. The patient was evaluated in room B9. A complete history and physical examination was performed. 1218: Ordered Aspirin 324 mg PO. 1222: Ordered Maalox Susp 30 ml PO, Lidocaine HCl 10 ml PO. 1421: I reevaluated the patient and she is resting comfortably. I discussed the test results with her and I discussed the treatment plan. She verbalized complete understanding and agreement. She is ready to go home. Medical Decision DDx: Acute coronary syndrome, pulmonary embolus, aortic dissection, musculoskeletal pain, pneumonia, pleural effusion, pneumothorax This pt was evaluated and appeared to be in no distress. IV access was obtained and lab work was drawn. Pt was placed on the pairer substandard. EKG is non-ischemic. CXR is clear. Pt was NOT given ASA as this sounds more like a gastritis during questioning. She was given a GI cocktail. Pt had 2 negative troponins and was advised to stop ASA as this is self-prescribed and will switch from ibuprofen to tylenol as needed for pain. She will continue her omeprazole and use zantac as needed. She was referred to her PCP for further cardiac w/u as needed. She was d/c to her 's care and will return to the ED for further management. Medication Reconcilliation Current Medication List: was personally reviewed by me Impression Primary Impression: Atypical chest pain Additional Impression: NSAID induced gastritis Scribe Attestation The scribe's documentation has been prepared under my direction and personally reviewed by me in its entirety. I confirm that the note above accurately reflects all work, treatment, procedures, and medical decision making performed by me. Departure Information Dispostion Home / Self-Care Referrals Kenny Saab M.D. (PCP) Forms Call Back Authorization, HOME CARE DOCUMENTATION FORM, IMPORTANT VISIT INFORMATION Patient Instructions [facility] Additional Instructions Diagnosis: NSAID gastritis, atypical chest pain Please stop taking aspirin and ibuprofen. Continue omeprazole as prescribed. Zantac 150 mg twice daily as needed for gastritis. Follow-up with your physician for reevaluation and consideration of further cardiac testing. Return to the emergency department for worsening of symptoms or any medical concerns. Problem Qualifiers
[2017-02-17 12:33] LABS: ALB/GLOB RATIO 0.9 (0.9-2); CKMB/CK RATIO 0.7 (0-3.0)
[2017-02-17] MEDS ORDERED: CYAN50TA2 PO (12:33)
[2017-02-17] MEDS ORDERED: ATOR10TA82 PO (12:33)
[2017-02-17] MEDS ORDERED: GLC/500 PO (12:33)
[2017-02-17] MEDS ORDERED: FIBE1CHW8 PO (12:33)
--- NOTE | 2017-02-17 12:38 | DIAGNOSTIC IMAGING REPORT ---
CHEST ONE VIEW PORTABLE CLINICAL HISTORY: CHEST PAIN dyspnea COMPARISON STUDY: No previous studies for comparison. FINDINGS: The bones soft tissues and hemidiaphragms are normal. The cardiomediastinal silhouette is normal. The lungs are clear. The pulmonary vasculature is normal. IMPRESSION: Negative chest. The above report was generated using voice recognition software. It may contain grammatical, syntax or spelling errors. Electronically signed by: Real Kingsley M.D. 02/17/2017 12:36 PM Dictated Date/Time: 02/17/2017 12:36 PM
[2017-02-17 14:21] LABS: THYROID STIMULATING HORMONE 1.15 uIu/ml (0.300-4.500)
[2017-02-17 15:03] VITALS: BP 128/68; PULSE 86; O2SAT 94
== END 2017-02-17 15:09 | disposition home or self-care (01) ==
LOC: C.EDB 11:09
DX: R07.89 Other chest pain (principal); K29.70 Gastritis, unspecified, without bleeding; Z79.82 Long term (current) use of aspirin; Z90.710 Acquired absence of both cervix and uterus; Z79.84 Long term (current) use of oral hypoglycemic drugs; Z80.0 Family history of malignant neoplasm of digestive organs

== ENCOUNTER → 2017-03-03 | Outpatient (CLI) | payer OTHER ==
[~2017-03-03] MED LIST changes: -ASPCH81X PO; +ATOR10TA82 PO; +CYAN50TA2 PO; +FIBE1CHW8 PO; +GLC/500 PO; +IBUP-1050 PO
== END | disposition home or self-care (01) ==
LOC: C.RDSM 10:57
PROVIDERS: ATTEND Orthopaedic Surgery Sports Medicine
DX: M94.261 Chondromalacia, right knee (principal); M25.561 Pain in right knee

== ENCOUNTER → 2017-05-14 | Outpatient (CLI) | payer OTHER ==
[2017-05-14 13:25] LABS: BASO % 0.9 %; BASO ABS # 0.06 K/uL (0-0.2); EOS % 2.5 %; EOS ABS # 0.16 K/uL (0-0.5); HEMATOCRIT 40.4 % (37-47); HEMOGLOBIN 13.6 g/dL (12.0-16.0); IG# 0.01 K/uL (0.00-0.02); LYMPH % 40.8 %; LYMPH ABS # 2.65 K/uL (1.2-3.4); MEAN CELL VOLUME 88.2 fL (80-100); MEAN CORPUSCULAR HEMOGLOBIN 29.7 pg (25-34); MEAN CORPUSCULAR HGB CONC 33.7 g/dl (32-36); MEAN PLATELET VOLUME 10.6 fL (7.4-10.4); MONO % 7.8 %; MONO ABS # 0.51 K/uL (0.11-0.59); NEUT % 47.8 %; NEUT ABS # 3.11 K/uL (1.4-6.5); PLATELET COUNT 284 K/uL (130-400); RED CELL DISTRIBUTION WIDTH CV 13.2 % (11.5-14.5); RED CELL DISTRIBUTION WIDTH SD 41.9 fL (36.4-46.3)
== END | disposition home or self-care (01) ==
LOC: C.LAB1850 10:32
PROVIDERS: ATTEND Internal Medicine
DX: R73.01 Impaired fasting glucose (principal)

== ENCOUNTER 2018-03-28 08:14 | Inpatient (IN) ==
--- NOTE | 2018-03-02 12:05 | Anesthesiology Consultation ---
Date of Service March 02, 2018 Assessment & Plan (1) Encounter for pre-operative examination: Chart Review Chart Review: Acceptable Risk for Surgery and Patient seen in Pre Admission Testing Consults Requested medical (Dr. Saab (03/01/18)) Patient was seen by PCP's office on 03/01/18 and a note was returned stating that "She is medically stable as she can be for her upcoming right knee arthroplasty." Teaching & Discussion Pre-Anesthesia Teaching/Discussion Notes: Instructed NPO after midnight before surgery, except medications with 15 cc of water. Medication instructions provided according to the PAT guidelines. History Surgery Operation Date: 03/28/18 10:20 Proposed Procedures p Right Total Knee Arthroplasty - Evaristo Luke Butterfield MD Height/Weight Height: 5 ft 1 in Weight: 78.7 kg Allergies Allergy/AdvReac Type Severity Reaction Status Date / Time Penicillins Allergy Unknown RASH Verified 02/27/18 14:54 Medications Home Medications Medication Instructions Recorded Confirmed Last Taken aspirin [Aspirin Low Dose] 81 mg PO QAM 02/27/18 02/27/18 Unknown atorvastatin 10 mg PO PM 02/27/18 02/27/18 Unknown docusate sodium [Stool Softener] 2 tab PO QAM 02/27/18 02/27/18 Unknown ibuprofen 400 - 600 mg PO QID PRN 02/27/18 02/27/18 Unknown metformin 1,000 mg PO BID 02/27/18 02/27/18 Unknown yseziexc-xgu-hblu-FA-lutein 1 tab PO QAM 02/27/18 02/27/18 Unknown [Centrum Silver Women] omeprazole 40 mg PO QAM 02/27/18 02/27/18 Unknown Past Medical History Medical History DJD (degenerative joint disease) Diabetes GERD (gastroesophageal reflux disease) High cholesterol Past Surgical History Surgical History History of meniscectomy of right knee Hx of hysterectomy has one ovary remaining - does know which Past Anesthesia History No Hx of Anesthesia Complications and No Family Hx of Anesthesia Complications History of PONV No Motion Sickness Screening History of Motion Sickness: No Social History Smoking Status: Never smoker Do You Dip or Chew Tobacco: No Hx Alcohol Use: No Hx Substance Use: No Exercise / Class Metabolic Activity III < 4 Walking/Shop/Light housework (Limited due to knee pain. Able to climb FOS. Denies CP or SOB. ) Review of Systems Patient denies chest pain, shortness of breath, dyspnea on exertion, reflux, cough (controlled with medications), wheezing, palpitations. +joint pain (knee) Physical Exam Vital Signs BP: 110/77 P: 80 R: 16 T: 98.0 SPO2: 96% on RA ENMT Thyromental Distance: < 3.5 Finger Breadths (3) Mallampati Class: II Neck normal visual inspection and trachea midline; neck extension not limited Respiratory normal respiratory effort Auscultation: lungs clear to auscultation bilaterally Cardiovascular Rate/Rhythm: regular rate and regular rhythm Heart Sounds: no murmur Vessels: no carotid bruit Psychiatric Orientation: alert and oriented x 3 Testing Electrocardiogram Date: 01/03/18 Findings: + NSR @ (73) Echocardiogram Date: 01/11/18 EF: 70% RWMA: + none Other Findings: no LVH Valvular Disease: + no significant valvular disease Normal left ventricular size with hyperdynamic systolic function. No significant diastolic dysfunction. No significant valvular abnormalities visualized. Other Testing CAROTID DUPLEX 01/11/18: Interpretation: 1)<50% stenosis in the ICAs bilaterally 2) Antegrade flow in both vertebral arteries Laboratory Results 03/02/18 12:33 03/02/18 12:54 Blood Type A Negative 03/02/18 12:33 Antibody Screen NEGATIVE 03/02/18 12:33 PT 9.9 Seconds (9.0-12.0) 03/02/18 12:33 INR 1.0 (0.9-1.1) 03/02/18 12:33 APTT 25.4 Seconds (21.0-31.0) 03/02/18 12:33 03/02/18 Unknown Urine Culture - Final Urine,Clean Catch More than three types of organisms present, all moderate counts mixed probable skin christina. No further identifications or sensitivities to follow.
--- NOTE | 2018-03-02 12:08 | PAT Medication Instructions ---
Medication Instructions Date of Service March 02, 2018 Home Medications aspirin [Aspirin Low Dose] 81 mg PO QAM atorvastatin 10 mg PO PM docusate sodium [Stool Softener] 2 tab PO QAM ibuprofen 400 - 600 mg PO QID NEEDED metformin 1,000 mg PO BID vqjurgev-mbd-gqim-FA-lutein [Centrum Silver Women] 1 tab PO QAM omeprazole 40 mg PO QAM ASK your surgeon for instructions ibuprofen 400 - 600 mg PO QID NEEDED aspirin [Aspirin Low Dose] 81 mg PO QAM DO NOT take the morning of surgery metformin 1,000 mg PO BID xfyupszy-ktd-sxkk-FA-lutein [Centrum Silver Women] 1 tab PO QAM docusate sodium [Stool Softener] 2 tab PO QAM Take morning of surgery With a small sip of water, OTHERWISE NOTHING TO EAT OR DRINK AFTER MIDNIGHT: omeprazole 40 mg PO QAM Take evening before surgery metformin 1,000 mg PO BID atorvastatin 10 mg PO PM Other Notes If you have any questions please call us at [phone] or [phone] or [phone] or [phone]
[2018-03-02 13:08] LABS: Basophils # (auto) 0.05 K/uL (0-0.2); Basophils % (auto) 0.8 %; Eosinophils # (auto) 0.16 K/uL (0-0.5); Eosinophils % (auto) 2.6 %; Hematocrit (blood only) 41.1 % (37-47); Hemoglobin 13.4 g/dL (12.0-16.0); Immature Granulocytes # (auto) 0.01 K/uL (0.00-0.02); Immature Granulocytes % (auto) 0.2 %; Lymphocytes # (auto) 2.19 K/uL (1.2-3.4); Lymphocytes % (auto) 36.1 %; Mean Corpuscular Hgb Conc 32.6 g/dL (32-36); Mean Corpuscular Volume 89.5 fL (80-100); Mean Platelet Volume 10.6 fL (7.4-10.4); Monocytes # (auto) 0.43 K/uL (0.11-0.59); Monocytes % (auto) 7.1 %; Neutrophils # (auto) 3.23 K/uL (1.4-6.5); Neutrophils % (auto) 53.2 %; Platelet Count 262 K/uL (130-400); RDW Coefficient of Variation 12.9 % (11.5-14.5); RDW Standard Deviation 41.6 fL (36.4-46.3); Red Blood Count 4.59 M/uL (4.2-5.4); White Blood Count 6.07 K/uL (4.8-10.8)
[2018-03-02 13:29] LABS: Albumin Level 3.5 gm/dl (3.4-5.0); Bilirubin Direct 0.1 mg/dl (0-0.2); Calcium 9.1 mg/dl (8.5-10.1); Creatinine Clr Calc Pharmacy 74.7 ml/min; Est GFR (African American) 97.1; Est GFR (Non-African American) 83.8; Potassium 4.3 mmol/L (3.5-5.1)
[2018-03-02 13:30] LABS: Bilirubin,Total 0.4 mg/dl (0.1-1); Total Protein 7.5 gm/dl (6.4-8.2)
[2018-03-02 13:36] LABS: Partial Thromboplastin Time 25.4 Seconds (21.0-31.0); Prothrombin Time 9.9 Seconds (9.0-12.0)
[~2018-03-28 08:14] MED LIST changes: -ATOR10TA82 PO; +BUPIVACAINE 0.5 % 5 MG/1 ML PF 10ML VIAL ONE; +CEFAZOLIN 1000MG 1,000 MG/7.5 ML SYR IV SCH; -CYAN50TA2 PO; +CeleBREX 200 MG CAP PO SCH; -FIBE1CHW8 PO; -GLC/500 PO; -IBUP-1050 PO; +LR 500ML BOLUS, THEN 15ML/HR IV SCH; +LR 60ML/HR IV SCH; +MIDAZOLAM HCL 1 MG/ML 2ML VIAL ONE; -MULT-506 PO; -OMEP20CA59 PO; +ROPIVACAINE 0.5% 5 MG/ML 30 ML VIAL ONE; +ROPIVACAINE 0.5% HCL/PF 150 MG, BUPIVACAINE 0.5% MPF 30 ML, EPINEPHrine 0.15 MG, Ketoro... INFIL SCH; +SCOPOLAMINE 1.5 MG TDSY TD SCH; +TRANEXAMIC ACID 1,000 MG **IV Intra-op IV SCH; +TRANEXAMIC ACID 1,000 MG **IV Pre-op IV SCH
--- NOTE | 2018-03-28 10:29 | History & Physical Bridge Note ---
Date of Service March 28, 2018 History & Physical Bridge Note I have examined the patient, reviewed the History & Physical and in the interval since the performance of the History & Physical I have noted the following changes of clinical significance: no changes noted
[2018-03-28] MEDS ORDERED: POVIDONE-IODINE OP SOLN 30 ML BTL ONE (10:31)
[2018-03-28] MEDS ORDERED: ORTHO JOINT ANESTHETIC ONE (10:31)
[2018-03-28] MEDS ORDERED: LIDOCAINE HCL 2% 2 ML VIAL/AMP(20MG/ML) INFIL ONE (11:11)
[2018-03-28] MEDS ORDERED: MIDAZOLAM HCL 1 MG/ML 2ML VIAL ONE (11:11)
[2018-03-28] MEDS ORDERED: PROPOFOL IV EMULSION 10 MG/ML 20 ML VIAL IV ONE ×2 (11:11→12:16)
[2018-03-28] MEDS ORDERED: GLYCOPYRROLATE 0.2 MG/ML VIAL ONE (11:36)
[2018-03-28] MEDS ORDERED: DiphenhydrAMINE HCL 50 MG/ML VIAL ONE (11:51)
[2018-03-28] MEDS ORDERED: ALBUTEROL HFA INHALER 8.5 GM ONE (12:09)
[2018-03-28] MEDS ORDERED: PHENYLEPHRINE HCL 10 MG/ML VIAL ONE (12:29)
--- NOTE | 2018-03-28 13:25 | Post Operative Brief Note ---
Immediate Post Op Note v1 Date of Surgery March 28, 2018 Pre & Post Diagnosis Operation Date: 03/28/18 10:20 Pre-Op Diagnosis: Right Knee End-Stage Degenerative Joint Disease Post-Op Diagnosis: Right Knee End-Stage Degenerative Joint Disease Procedure Operation Date: 03/28/18 10:20 Actual Procedures p Right Total Knee Arthroplasty(Right) - Evaristo Butterfield MD Surgeon Evaristo Butterfield MD Clinical Informatics Manager Trish Saavedra PA-C (No fellow avail) Estimated Blood Loss 120 Findings Consistent with Post-Op Diagnosis Fluids 1400 cc Specimens Right knee contents Anesthesia Type Spinal Complications none
--- NOTE | 2018-03-28 13:26 | Operative Report ---
Post Operative Report Pre & Post Diagnosis Operation Date: 03/28/18 10:20 Pre-Op Diagnosis: Right Knee End-Stage Degenerative Joint Disease with varus alignment. Post-Op Diagnosis: Right Knee End-Stage Degenerative Joint Disease with varus alignment. Procedure Operation Date: 03/28/18 10:20 Actual Procedures p Right Total Knee Arthroplasty(Right) - Evaristo Butterfield MD Surgeon Evaristo Butterfield MD Media Professional Trish Saavedra PA-C (No fellow avail) Estimated Blood Loss 120 Findings See Below Examined Under Anesthesia: ROM -- There was 5 degrees to 120 degrees of flexion Ligamentous examination -- revealed stable Flo, posterior drawer, varus and valgus stress at 0 and 30 degrees. [place] Type IV changes of medial compartment and patellofemoral compartment , type III changes in the lateral compartment. Fluids 1400 cc Specimens Right knee contents Drains n/a Anesthesia Type Spinal Complications none Indications This is a 57-year-old female who has clinical and radiographic findings consistent with osteoarthritis of the a right knee. I recommended that a right total knee replacement be performed. The patient understands the risks of surgery, which include but not limited to: bleeding, infection, re-operation, damage to nerves and arteries, continued knee pain, knee stiffness, DVT, and . The patient understands all of these instructions and explanations, all of his questions have been satisfactorily addressed and the patient has elected to proceed. Informed consent was signed. Description of Procedure IMPLANTS: 1. Femur: Triathlon #3 Right PS. 2. Tibia: Triathlon #2 Tribune. 3. Insert: Triathlon #2 x 13 mm PS X3 poly. 4. Patella: Triathlon S29 x 8 mm X3 poly. 5. Palacos G cement. Procedure: The patient was taken to the Operating Room and placed in the supine position after spinal and adductor canal nerve block was administered. My initials and a multidisciplinary time-out were used to identify the right leg as the correct operative limb. A tourniquet was placed high in the thigh. Prior to the incision, 1 gram of intravenous Ancef was given. The right leg was then prepped and draped in a standard sterile fashion. An Esmarch was used to exsanguinate the leg and the tourniquet was inflated to 250 mmHg. The planned mid-line 20 cm incision was created exposing the extensor mechanism. The medial parapatellar arthrotomy was made and the patella was everted. The patella was addressed first. It was prepared by reaming from 19 mm down to 12 mm. An S29 button was found to fit best. The peg holes were made in the standard fashion. The femur was addressed next and the guide kailyn was placed intramedullary. The initial cutting block was placed with 5 degrees of valgus and removing 10 mm for the anterior cut. The cut was made and the 4-in-1 cutting block for a size 3 femur was placed. These cuts and the cuts to place the box were made in the standard fashion. Our attention was then drawn to the tibia cut with the external cutting guide, taking 4 mm from the medial low side. A #2 Tibial baseplate fit well. A trial with a 13 mm spacer showed excellent stability in both flexion and extension, with good ligament balance. Range of motion of 0-125 degrees. The tibial baseplate was pinned and the final preparation for the keel and stem was made. All the trial components were tested again, with good stability and thumbs free tracking of the patella. All components were removed. The tourniquet was deflated. Hemostasis was obtained. 90 ml of total knee cocktail were injected into the soft tissues and periosteum. A bone plug was placed in the femur and covered with bone wax. After a 15 minute break, the limb was exsanguinated again and the tourniquet was re-inflated. All surfaces were copiously irrigated prior to placement of the components. The femoral component and Tibial baseplate were cemented in place and a 13 mm trial placed. Then the patellar button was cemented in place. Again with the 13 mm trial poly the range of motion and stability were unchanged. Once the cement had cured, the 13 mm X3 poly was placed. The extensor mechanism was closed with 1-0 and 0 Vicryl with the knee bent approximately 60 degrees in a standard fashion. The peritenon and deep fascia was closed with 2-0 Vicryl. The subcutaneous layer was closed with 3-0 Vicryl. The skin was closed with Zipline. The limb was cleaned and dried. 4x4 dressing was placed over top followed by ABDs, sterile Webril, and a foot to thigh Jamie bandage. The patient was then transferred to the Recovery Room in stable condition. The sponge and needle counts were correct. POST-OP INSTRUCTIONS: The patient will be WBAT. The patient will be admitted to the hospital. The patient will use the knee immobilizer when ambulating and standing until good quad control is achieved. Labs will be obtained during her stay. DVT prophylaxis will included Lovenox for 3 weeks then switching to aspirin for 3 more weeks, TEDs, and mechanical foot pumps. The dressing will be changed prior to their discharge or postop day #2 and covered with a Silverlon dressing , whichever comes first. I attest to the content of the Intraoperative Record and any orders documented therein. Any exceptions are noted below.
--- NOTE | 2018-03-28 14:06 | Anesthesiology Progress Note ---
Date of Service March 28, 2018 Anesthesia Post Procedure Vital Signs Vital Signs: Temp Pulse Pulse Resp BP Pulse Ox 03/28/18 14:00 73 20 107/70 96 03/28/18 13:50 69 20 98/68 L 97 03/28/18 13:40 67 20 104/80 99 03/28/18 13:30 37.1 C 78 20 102/72 98 03/28/18 08:42 36.7 C 87 16 119/71 93 Pain Intensity Right Knee: Pain Intensity: 0 Notes Mental Status: alert / awake / arousable Patient Amnestic to Procedure: Yes Nausea / Vomiting: adequately controlled Pain: adequately controlled Airway Patency, RR, SpO2: stable & adequate BP & HR: stable & adequate Hydration State: stable & adequate Neuraxial Anesthesia: was administered and sensory block is resolving Anesthetic Complications: no major complications apparent
--- NOTE | 2018-03-28 15:19 | XRay Report ---
XR knee RT 2V routine CLINICAL HISTORY: Surgical Post Op COMPARISON: None. DISCUSSION: Anatomic alignment post total right knee arthroplasty. Good contact between prosthetic an d underlying bone. Expected postoperative soft tissue change IMPRESSION: Anatomic alignment post total right knee arthroplasty. The above report was generated using voice recognition software. It may contain grammatical, syntax or spelling errors. Electronically signed by: Real Kingsley M.D. 03/28/2018 3:18 PM
[2018-03-28] MEDS ORDERED: OXYCODONE HCL IR 5 MG TAB (IMMEDIATE RELEASE) PO PRN (16:13)
[2018-03-28] MEDS ORDERED: BISACODYL 10 MG SUPP PR PRN (16:13)
[2018-03-28] MEDS ORDERED: DiphenhydrAMINE HCL 50 MG/ML VIAL IV PRN (16:13)
[2018-03-28] MEDS ORDERED: METOCLOPRAMIDE HCL INJ 5 MG/ML 2 ML VIAL IV PRN (16:13)
[2018-03-28] MEDS ORDERED: MAGNESIUM HYDROXIDE SUSP 30 ML UDC PO PRN (16:13)
[2018-03-28] MEDS ORDERED: ALUMINUM/MAGNESIUM SUSP 30 ML UDC PO PRN (16:13)
[2018-03-28] MEDS ORDERED: ONDANSETRON INJ 2 MG/ML 2 ML VIAL IV PRN (16:13)
[2018-03-28] MEDS ORDERED: SODIUM CHLORIDE 0.9% 1000ML 1,000 ML IV SCH (16:13)
[2018-03-28] MEDS ORDERED: HYDROmorphone INJ 0.5 MG/0.5 ML SYR IV PRN (16:13)
[2018-03-28] MEDS ORDERED: NALOXONE HCL 0.4 MG/1 ML VIAL/CARP IV PRN (16:13)
[2018-03-28] MEDS: METFORMIN HCL 500 MG TAB PO SCH (19:13)
[2018-03-28] MEDS: ASCORBIC ACID 500 MG TAB PO SCH (19:14)
[2018-03-28] MEDS: FERROUS GLUCONATE 324 MG TAB PO SCH (19:14)
[2018-03-28] MEDS: CHECK SCOPOLAMINE PATCH PLACEMENT SCH ×2 (19:17→23:31)
[2018-03-28] MEDS: CEFAZOLIN 2000MG 2,000 MG/15 ML SYR IV SCH (19:19)
--- NOTE | 2018-03-28 20:23 | Orthopedic Progress Note ---
Date of Service March 28, 2018 Assessment & Plan (1) S/P total knee arthroplasty: POD# 0 s/p R TKA, doing very well. Continue Pain control. Resume diet. WBAT with walker, use immobilizer while walking until demonstrates good quad control or after 48 hrs. Activity as tolerated. PT/OT. Check am labs. DVT Prophylaxis: TEDs and foot pumps while in hospital. Start Lovenox in am and continue for 3 weeks, then switch to ASA for another 3 weeks. Dressing will be changed to Silverlon prior to discharge or POD #2. Appreciate Medicine input. D/C planning. Present on Admission?: No Subjective No Complaints. No pain with ambulation. + Void. Physical Exam 2 Vital Signs (Past 24 Hours): Last Vital Signs Temp 36.8 C 03/28/18 20:00 Pulse 67 03/28/18 20:00 Resp 20 03/28/18 20:00 BP 130/73 03/28/18 20:00 Pulse Ox 94 03/28/18 20:00 Physical Exam: RLE: Dressing clean, dry, intact. Immobilizer in place. Wiggling toes and ankle. Calf soft and non-tender. Able to preform staight leg raise. Sitting comfortably in chair. Results & Data Diagnostic Findings Radiographs: AP & Lateral R knee shows expected cemented TKA.
[2018-03-28] MEDS ORDERED: SENNA 8.6 MG TAB PO SCH (21:00)
[2018-03-28] MEDS ORDERED: ATORVASTATIN 10 MG TAB PO SCH (21:00)
[2018-03-28] MEDS: DOCUSATE SODIUM 100 MG CAP PO SCH (21:32)
[2018-03-28] MEDS: ACETAMINOPHEN 500 MG TAB PO SCH (21:32)
[2018-03-28] MEDS: CeleBREX 200 MG CAP PO SCH (21:33)
[2018-03-29] MEDS: CEFAZOLIN 2000MG 2,000 MG/15 ML SYR IV SCH (02:28)
[2018-03-29] MEDS: ACETAMINOPHEN 500 MG TAB PO SCH ×2 (05:26→13:48)
[2018-03-29 06:29] LABS: Hematocrit (blood only) 29.5 % (37-47); Hemoglobin 9.9 g/dL (12.0-16.0); Mean Corpuscular Hgb Conc 33.6 g/dL (32-36); Mean Corpuscular Volume 87.3 fL (80-100); Mean Platelet Volume 9.4 fL (7.4-10.4); Platelet Count 196 K/uL (130-400); RDW Coefficient of Variation 12.8 % (11.5-14.5); RDW Standard Deviation 41.1 fL (36.4-46.3); Red Blood Count 3.38 M/uL (4.2-5.4); White Blood Count 8.33 K/uL (4.8-10.8)
[2018-03-29 07:00] LABS: BUN Creatinine Ratio 12.9 (10-20); Calcium 7.8 mg/dl (8.5-10.1); Creatinine Clr Calc Pharmacy 70.8 ml/min; Est GFR (African American) 91.4; Est GFR (Non-African American) 78.9; Potassium 4.1 mmol/L (3.5-5.1)
[2018-03-29] MEDS: FERROUS GLUCONATE 324 MG TAB PO SCH (08:37)
[2018-03-29] MEDS: CeleBREX 200 MG CAP PO SCH (08:37)
[2018-03-29] MEDS: ASCORBIC ACID 500 MG TAB PO SCH (08:37)
[2018-03-29] MEDS: METFORMIN HCL 500 MG TAB PO SCH (08:37)
[2018-03-29] MEDS: DOCUSATE SODIUM 100 MG CAP PO SCH (08:37)
--- NOTE | 2018-03-29 08:37 | Orthopedic Progress Note ---
Addendum entered and electronically signed by Sharon Dillard PA-C 09:15: Addendum (Blank) Addendum March 29, 2018 09:[address] Butterfield, he was fine with discharge, so dressing changed right knee. Incision clean, dry, intact with minimal drainage. zip- line in place. skin edges approximated. Silverlon applied and REY stocking. Original Note: Date of Service March 29, 2018 Assessment & Plan (1) S/P total knee arthroplasty: POD# 1 s/p R TKA, doing very well. Continue Pain control. - currently taking Tylenol for pain. Continue regular diet. Informed patient zofran ordered for nausea PRN. WBAT with walker, can D/C immobilizer. Activity as tolerated. PT/OT today. H/H stable - acute blood loss anemia, asymptomatic DVT Prophylaxis: TEDs and foot pumps while in hospital. Start Lovenox this morning and continue for 3 weeks, then switch to ASA for another 3 weeks. Dressing will be changed to Silverlon prior to discharge. Appreciate Medicine input. Plan for home with home health. Patient would like to go home this afternoon, will see how she does in PT and discharge later this afternoon if safe and pain controlled. I, Dr. Butterfield, saw and examined the patient and discussed the management with my PA. I reviewed my PAs note and agree with the documented findings and the plan of care I developed. Subjective Doing well, out of bed in chair, eating breakfast. Tolerating diet, mild nausea , no vomiting, no chest pain, SOB, headaches. Physical Exam 2 Vital Signs (Past 24 Hours): Last Vital Signs Temp 36.7 C 03/29/18 07:23 Pulse 75 03/29/18 07:23 Resp 16 03/29/18 07:23 BP 92/54 L 03/29/18 07:23 Pulse Ox 91 03/29/18 07:23 Physical Exam: Right knee dressings intact. Able to independently SLR. Distal pulses 1+, distal sensation normal. Strength 5/5. Results & Data Laboratory Results 03/29/18 03/29/18 03/29/18 Range/Units 06:10 06:10 06:10 WBC 8.33 (4.8-10.8) K/uL RBC 3.38 L (4.2-5.4) M/uL Hgb 9.9 L (12.0-16.0) g/dL Hct 29.5 L (37-47) % MCV 87.3 (80-100) fL MCH 29.3 (25-34) pg MCHC 33.6 (32-36) g/dL RDW Std Deviation 41.1 (36.4-46.3) fL RDW Coeff of Miol 12.8 (11.5-14.5) % Plt Count 196 (130-400) K/uL MPV 9.4 (7.4-10.4) fL Sodium 132 L (136-145) mmol/L Potassium 4.1 (3.5-5.1) mmol/L Chloride 99 (98-107) mmol/L Carbon Dioxide 25 (21-32) mmol/L Anion Gap 9.0 (3-11) BUN 11 (7-18) mg/dl Creatinine 0.82 (0.6-1.2) mg/dl Est Cr Clr Drug Dosing 70.8 ml/min Est GFR ( Amer) 91.4 Est GFR (Non-Af Amer) 78.9 BUN/Creatinine Ratio 12.9 (10-20) Glucose 115 H (70-99) mg/dl POC Glucose (70-99) Calcium 7.8 L (8.5-10.1) mg/dl Hepatitis C Ab Screen Pending 03/28/18 03/28/18 03/28/18 Range/Units 20:17 17:07 15:30 WBC (4.8-10.8) K/uL RBC (4.2-5.4) M/uL Hgb (12.0-16.0) g/dL Hct (37-47) % MCV (80-100) fL MCH (25-34) pg MCHC (32-36) g/dL RDW Std Deviation (36.4-46.3) fL RDW Coeff of Milo (11.5-14.5) % Plt Count (130-400) K/uL MPV (7.4-10.4) fL Sodium (136-145) mmol/L Potassium (3.5-5.1) mmol/L Chloride (98-107) mmol/L Carbon Dioxide (21-32) mmol/L Anion Gap (3-11) BUN (7-18) mg/dl Creatinine (0.6-1.2) mg/dl Est Cr Clr Drug Dosing ml/min Est GFR ( Amer) Est GFR (Non-Af Amer) BUN/Creatinine Ratio (10-20) Glucose (70-99) mg/dl POC Glucose 118 H 116 H 142 H (70-99) Calcium (8.5-10.1) mg/dl Hepatitis C Ab Screen 03/28/18 Range/Units 08:38 WBC (4.8-10.8) K/uL RBC (4.2-5.4) M/uL Hgb (12.0-16.0) g/dL Hct (37-47) % MCV (80-100) fL MCH (25-34) pg MCHC (32-36) g/dL RDW Std Deviation (36.4-46.3) fL RDW Coeff of Milo (11.5-14.5) % Plt Count (130-400) K/uL MPV (7.4-10.4) fL Sodium (136-145) mmol/L Potassium (3.5-5.1) mmol/L Chloride (98-107) mmol/L Carbon Dioxide (21-32) mmol/L Anion Gap (3-11) BUN (7-18) mg/dl Creatinine (0.6-1.2) mg/dl Est Cr Clr Drug Dosing ml/min Est GFR ( Amer) Est GFR (Non-Af Amer) BUN/Creatinine Ratio (10-20) Glucose (70-99) mg/dl POC Glucose 108 H (70-99) Calcium (8.5-10.1) mg/dl Hepatitis C Ab Screen
[2018-03-29] MEDS ORDERED: PANTOprazole 40 MG TAB PO SCH (09:00)
[2018-03-29] MEDS ORDERED: MULTIVITAMIN TAB PO SCH ×2 (09:00)
[2018-03-29] MEDS ORDERED: ENOXAPARIN INJ 30 MG/0.3 ML SYR SQ SCH (09:00)
--- NOTE | 2018-03-30 14:18 | Operative Report ---
Post Operative Report Pre & Post Diagnosis Operation Date: 03/28/18 10:20 Pre-Op Diagnosis: Right Knee End-Stage Degenerative Joint Disease with with Varus Malalignment Post-Op Diagnosis: Right Knee End-Stage Degenerative Joint Disease with with Varus Malalignment Procedure Operation Date: 03/28/18 10:20 Actual Procedures p Right Total Knee Arthroplasty(Right) - Evaristo Butterfield MD Surgeon Evaristo Butterfield Internet Security Specialist Trish Saavedra PA-C (No fellow avail) Estimated Blood Loss 120 Findings Consistent with Post-Op Diagnosis Specimens right knee bone and soft tissue Complications none Indications Please see Dr Butterfield operative report for full details Description of Procedure Please see Dr Butterfield operative report for full details. I was travel assistant during entire case including position, prepping, draping, limb and instrument handling, wound closure, dressing application. I attest to the content of the Intraoperative Record and any orders documented therein. Any exceptions are noted below.
--- NOTE | 2018-03-30 16:06 | Discharge Summary ---
ADMISSION DIAGNOSIS: Right knee end-stage degenerative joint disease. DISCHARGE DIAGNOSIS: Right knee end-stage degenerative joint disease, status post right total knee arthroplasty. SERVICE: Evaristo Butterfield MD, Orthopedics. PROCEDURE: Right total knee arthroplasty with general anesthesia and single femoral nerve regional block, 03/28/2018. HOSPITAL COURSE: A 57-year-old female admitted to the hospital status post right total knee arthroplasty by Dr. Butterfield on 03/28/2018. She had no complications with anesthesia. On postop day 0, pain controlled with p.o. medications, tolerated p.o. diet, able to void, nausea controlled with medication, ambulating with knee immobilizer with a walker, able to sleep through the night without issue. On postop day 1, pain controlled with just Tylenol, nausea improved, hemoglobin 9.9. Post-op dressing changed to silvalone to remain on until follow-up appointment in the office. She had physical therapy with a syncopal episode in the first a.m. session. She did require sternal rub. She was unresponsive briefly, never closed her eyes. She was able to tolerate physical therapy for her p.m. session and had no further recurrences of syncope episode with last blood pressure reading 96/64 and VS stable. Patient was seen by Dr. Butterfield in PM and patient was hoping to still go home. He deemed her stable for discharge. Weightbearing as tolerated with a walker, knee immobilizer for ambulation for the first 48 hours. She can take oxycodone for severe pain, otherwise Tylenol and the use of ice. She was also given prescriptions for iron and vitamin C. She will restart all of her home medications for her underlying medical issues but hold any supplements that might cause bleeding. She will receive home health physical therapy and will follow up with us in 2 weeks. She was asked to call the office if she has any further problems, questions, or concerns, and if she develops any syncope episodes, she was advised to call us, her PCP, or go to the emergency room. BENIGNO
== END 2018-03-29 14:57 | disposition home health service (06) | DRG 470 ==
LOC: ASU 08:14 → 3E 13:49

== ENCOUNTER 2020-02-12 05:14 | Observation (INO) ==
--- NOTE | 2020-01-18 14:27 | PAT Medication Instructions ---
Medication Instructions Date of Service January 18, 2020 Home Medications Medication Instructions Recorded omeprazole 40 mg capsule,delayed 40 mg PO QAM #90 cap 08/28/19 release atorvastatin 20 mg tablet 20 mg PO PM #90 tab 10/26/19 Centrum Silver Women 1 tab PO QAM aspirin [Aspirin Low Dose] 81 mg PO QAM docusate sodium [Stool Softener] 2 tab PO QAM Fiber Gummies 2 g PO QAM omeprazole 40 mg capsule,delayed release 40 mg PO QAM atorvastatin 20 mg tablet 20 mg PO PM biotin 1 mg PO DAILY celecoxib [Celebrex] 200 mg PO BID turmeric 400 mg PO QAM ASK your surgeon for instructions celecoxib [Celebrex] 200 mg PO BID STOP taking 2 weeks before surgery biotin 1 mg PO DAILY turmeric 400 mg PO QAM DO NOT take the morning of surgery Centrum Silver Women 1 tab PO QAM docusate sodium [Stool Softener] 2 tab PO QAM Fiber Gummies 2 g PO QAM Take morning of surgery With a small sip of water, OTHERWISE NOTHING TO EAT OR DRINK AFTER MIDNIGHT: aspirin [Aspirin Low Dose] 81 mg PO QAM omeprazole 40 mg capsule,delayed release 40 mg PO QAM Take evening before surgery atorvastatin 20 mg tablet 20 mg PO PM Other Notes If you have any questions please call us at [phone] or [phone] or [phone] or [phone]
--- NOTE | 2020-01-21 15:36 | Anesthesiology Consultation ---
Date of Service January 21, 2020 Assessment & Plan (1) Encounter for pre-operative examination: COVID Status: As of 01/20 assessment, patient denies travel to endemic area, known exposure/sick contacts, or symptoms of COVID19. Patient instructed that they and their household members must follow strict social distancing guidelines, wear a mask in public and avoid travel/events/gatherings for 14 days prior to surgery (pt reports no Thanksgiving plans). Preoperative COVID19 testi ng to be completed prior to surgery per surgeon's arrangements (pt reports 02/04). Patient made aware to self-isolate as much as possible between COVID testing and surgery. Right TKA 03/28/18: SABx1 at L3-L4 + PNB. Per anesthesia records, increased secretions noted/glyco given, ?bronchospasm- given benadryl, AV with mask, + albuterol. Suctioned small amount of clear sputum. Lung sounds clear b/l, sedation off and patient ok with being awake for procedure. Small amount of sedation for comfort given. No complications per anesthesia progress note from same day. Patient has no memory of surgery, reports satisfaction with anesthetic. Chart Review Chart Review: Acceptable Risk for Surgery (pending surgeon-ordered PCP clearance) and Patient seen in Pre Admission Testing Teaching & Discussion Instructed NPO after midnight before surgery, except medications with 15 cc of water. Medication instructions provided according to the PAT guidelines. History Surgery Operation Date: 02/12/20 07:00 Proposed Procedures p Left Total Knee Arthroplasty - Evaristo Luke Butterfield MD Height/Weight Height: 5 ft 1 in Weight: 87.5 kg Allergies Allergy/AdvReac Type Severity Reaction Status Date / Time Penicillins Allergy Mild RASH Verified 08/14/19 10:04 Medications Home Medications Medication Instructions Recorded Confirmed Last Taken Centrum Silver Women 1 tab PO QAM 02/27/18 01/04/20 08/13/19 aspirin [Aspirin Low Dose] 81 mg PO QAM 02/27/18 01/04/20 08/13/19 docusate sodium [Stool Softener] 2 tab PO QAM 02/27/18 01/04/20 08/13/19 Fiber Gummies 2 g PO QAM 06/05/19 01/04/20 08/13/19 omeprazole 40 mg capsule,delayed 40 mg PO QAM #90 cap 08/28/19 01/04/20 Unknown release atorvastatin 20 mg tablet 20 mg PO PM #90 tab 10/26/19 01/04/20 Unknown biotin 1 mg PO DAILY 01/04/20 01/04/20 Unknown celecoxib [Celebrex] 200 mg PO BID 01/04/20 01/04/20 Unknown turmeric 400 mg PO QAM 01/04/20 01/04/20 Unknown Past Medical History Medical History Anemia post-op DJD (degenerative joint disease) GERD (gastroesophageal reflux disease) High cholesterol Obesity Prediabetes no meds Exercise / Class Metabolic Activity II 4-5 Yardwork/Stairs/Walk up hill Past Family History Family History Mother Colon cancer Father S/P CABG (coronary artery bypass graft) Coronary arteriosclerosis Brother Chronic kidney disease Grandmother (Maternal) Family history of diabetes mellitus Past Surgical History Surgical History History of colonoscopy History of esophagogastroduodenoscopy (EGD) History of eye surgery RT/LEFT EYE LASER History of meniscectomy of right knee History of tonsillectomy History of tooth extraction History of total knee replacement Right TKA: 03/28/18: SABx1 at L3-L4 + PNB. Per anesthesia records, increased secretions noted/glyco given, ?bronchospasm- given benadryl, AV with mask, + albuterol. Suctioned small amount of clear sputum. Lung sounds clear b/l, sedation off and patient ok with being awake for procedure. Small amount of sedation for comfort given. No complications per anesthesia progress note from same day. Hx of hysterectomy S/P dilation and curettage Past Anesthesia History No Hx of Anesthesia Complications and No Family Hx of Anesthesia Complications History of PONV No Hx of PONV and No Hx of Motion Sickness Social History Smoking Status: Never smoker Do You Dip or Chew Tobacco: No Hx Alcohol Use: No Hx Substance Use: No substance use type: does not use Review of Systems Pt denies any recent chest pain, shortness of breath, palpitations, cough, fever, URI, or uncontrolled acid reflux (controlled with PPI). Physical Exam Vital Signs BP: 118/78 P: 79bpm SPO2: 93% RA T: 98.4 F R: 16 ENMT Mouth: + small oral opening; no dental restorations, no chipped teeth and no loose teeth Thyromental Distance: > or= 3.5 Finger Breadths Mallampati Class: III Neck normal visual inspection; neck extension not limited Respiratory normal respiratory effort, lungs clear to auscultation Cardiovascular RRR, no murmur, no edema Vessels: no carotid bruit Testing Laboratory Results 01/21/20 15:44 01/21/20 15:44 PT 10.6 Seconds (9.0-12.0) 01/21/20 15:44 INR 1.0 (0.9-1.1) 01/21/20 15:44 APTT 27.6 Seconds (21.0-31.0) 01/21/20 15:44 Blood Type A Negative 01/21/20 15:44 Antibody Screen NEGATIVE 01/21/20 15:44 *Bicarb was completed but not reported as "result was compromised due to technical problem" per lab note. Electrocardiogram Date: 01/21/20 Findings: + NSR @ (73bpm)
[2020-01-21 16:09] LABS: Basophils # (auto) 0.04 K/uL (0-0.2); Basophils % (auto) 0.6 %; Eosinophils # (auto) 0.14 K/uL (0-0.5); Eosinophils % (auto) 2.2 %; Hemoglobin 12.3 g/dL (12.0-16.0); Immature Granulocytes # (auto) 0.01 K/uL (0.00-0.02); Immature Granulocytes % (auto) 0.2 %; Lymphocytes # (auto) 2.22 K/uL (1.2-3.4); Lymphocytes % (auto) 34.3 %; Mean Corpuscular Hemoglobin 29.6 pg (25-34); Mean Corpuscular Hgb Conc 32.4 g/dL (32-36); Mean Corpuscular Volume 91.3 fL (80-100); Mean Platelet Volume 10.6 fL (7.4-10.4); Monocytes % (auto) 9.3 %; Neutrophils # (auto) 3.46 K/uL (1.4-6.5); Neutrophils % (auto) 53.4 %; Platelet Count 280 K/uL (130-400); RDW Coefficient of Variation 12.8 % (11.5-14.5); Red Blood Count 4.16 M/uL (4.2-5.4); White Blood Count 6.47 K/uL (4.8-10.8)
[2020-01-21 16:10] LABS: Chloride 104 mmol/L (98-107); Potassium 4.2 mmol/L (3.5-5.1); Sodium 138 mmol/L (136-145)
[2020-01-21 16:20] LABS: Partial Thromboplastin Time 27.6 Seconds (21.0-31.0); Prothrombin Time 10.6 Seconds (9.0-12.0)
--- NOTE | 2020-01-21 16:53 | Electrocardiogram Report ---
Test Reason : Blood Pressure : / mmHG Vent. Rate : 073 BPM Atrial Rate : 073 BPM P-R Int : 146 ms QRS Dur : 072 ms QT Int : 386 ms P-R-T Axes : 072 064 036 degrees QTc Int : 425 ms Normal sinus rhythm Normal ECG When compared with ECG of 17-FEB-2017 11:15, Nonspecific T wave abnormality no longer evident in Anterior leads Confirmed by Fabian Woodson ([id number]) on 01/21/2020 4:52:41 PM Referred By: Evaristo Butterfield Confirmed By:Fabian Woodson
[2020-01-21 17:59] LABS: Albumin Level 3.5 gm/dl (3.4-5.0); BUN Creatinine Ratio 16.2 (10-20); Blood Urea Nitrogen 13 mg/dl (7-18); Calcium 9.2 mg/dl (8.5-10.1); Creatinine Clr Calc Pharmacy 72.5 ml/min; Est GFR (African American) 88.8; Est GFR (Non-African American) 76.6; Glucose 95 mg/dl (70-99)
[2020-01-21 18:01] LABS: Bilirubin,Total 0.3 mg/dl (0.2-1); Total Protein 7.5 gm/dl (6.4-8.2)
[2020-01-21 20:19] LABS: Alanine Aminotransferase 37 U/L (12-78); Aspartate Aminotransferase 24 U/L (15-37); Bilirubin Direct < 0.1 mg/dl (0-0.2)
[2020-01-21 21:59] LABS: Alkaline Phosphatase 118 U/L (45-117)
[2020-02-12] MEDS ORDERED: SCOPOLAMINE 1.5 MG TDSY TD ONE (05:33)
[2020-02-12] MEDS: LR 500ML BOLUS, THEN 15ML/HR IV SCH (05:53)
[2020-02-12] MEDS ORDERED: TRANEXAMIC ACID 1,000 MG **IV Pre-op IV SCH (06:00)
[2020-02-12] MEDS ORDERED: LR 60ML/HR IV SCH (06:00)
[2020-02-12] MEDS ORDERED: TRANEXAMIC ACID 1,000 MG **IV Intra-op IV SCH (06:00)
[2020-02-12] MEDS ORDERED: ROPIVACAINE 0.5% HCL/PF 150 MG, BUPIVACAINE 0.5% MPF 30 ML, EPINEPHrine 0.15 MG, Ketoro... INFIL SCH (06:00)
[2020-02-12] MEDS ORDERED: CeleBREX 200 MG CAP PO SCH (06:00)
[2020-02-12] MEDS ORDERED: ceFAZolin 2000MG 2,000 MG/15 ML SYR IV SCH (06:00)
[2020-02-12] MEDS ORDERED: BUPIVACAINE 0.5 % 5 MG/1 ML PF 10ML VIAL ONE (06:29)
[2020-02-12] MEDS ORDERED: BUPIVACAINE 0.25% 30 ML VIAL ONE (06:30)
--- NOTE | 2020-02-12 06:40 | History & Physical Bridge Note ---
Date of Service February 12, 2020 History & Physical Bridge Note I have examined the patient, reviewed the History & Physical and in the interval since the performance of the History & Physical I have noted the following changes of clinical significance: no changes noted Patient is aware of the risks, is asymptomatic, and tested negative for COVID- 19.
[2020-02-12] MEDS ORDERED: fentaNYL citrate 100 MCG/2 ML VIAL ONE (06:44)
[2020-02-12] MEDS ORDERED: MIDAZOLAM HCL 1 MG/ML 2ML VIAL ONE ×3 (06:44→09:04)
[2020-02-12] MEDS ORDERED: ORTHO JOINT ANESTHETIC ONE (06:55)
[2020-02-12] MEDS ORDERED: PROPOFOL IV EMULSION 10 MG/ML 20 ML VIAL IV ONE (08:03)
[2020-02-12] MEDS ORDERED: LIDOCAINE HCL 2% 2 ML VIAL/AMP(20MG/ML) INFIL ONE (08:03)
[2020-02-12] MEDS ORDERED: ONDANSETRON INJ 2 MG/ML 2 ML VIAL ONE (08:03)
[2020-02-12] MEDS ORDERED: ATROPINE SULFATE 0.1 MG/ML 10ML SYR IV PRN (08:07)
[2020-02-12] MEDS ORDERED: ePHEDrine sulfate 50 MG/ML AMP IV PRN (08:07)
--- NOTE | 2020-02-12 10:07 | Post Operative Brief Note ---
Immediate Post Op Note v1 Date of Surgery February 12, 2020 Pre & Post Diagnosis Operation Date: 02/12/20 07:00 Pre-Op Diagnosis: Left Knee Degenerative Joint Disease Post-Op Diagnosis: Left Knee Degenerative Joint Disease I identified the patient and participated in the time-out.: Yes Procedure Operation Date: 02/12/20 07:00 Actual Procedures p Left Total Knee Arthroplasty(Left) - Evaristo Butterfield MD Surgeon Evaristo Butterfield MD Telephoner Trish Saavedra PA-C (No fellow avail) Estimated Blood Loss 75 Findings Consistent with Post-Op Diagnosis Fluids 1000 cc Specimens L knee contents Anesthesia Type MAC Spinal Regional Complications none
--- NOTE | 2020-02-12 10:08 | Operative Report ---
Post Operative Report Pre & Post Diagnosis Operation Date: 02/12/20 07:00 Pre-Op Diagnosis: Left Knee Degenerative Joint Disease Post-Op Diagnosis: Left Knee Degenerative Joint Disease I identified the patient and participated in the time-out.: Yes Procedure Operation Date: 02/12/20 07:00 Actual Procedures p Left Total Knee Arthroplasty(Left) - Evaristo Butterfield MD Surgeon Evaristo Butterfield MD Rod Pointer Trish Saavedra PA-C (No fellow avail) Estimated Blood Loss 75 Findings See Below Examined Under Anesthesia: ROM -- There was 0 degrees to 125 degrees of flexion Ligamentous examination -- revealed stable Flo, posterior drawer, varus and valgus stress at 0 and 30 degrees. [place] Type IV changes of MFC and Patellofemoral compartment. Significant synovitis. Fluids 1000 cc Specimens L knee contents Drains n/a Anesthesia Type MAC Spinal Regional Complications none Indications This is a 59-year-old female who has clinical and radiographic findings c onsistent with osteoarthritis of the a left knee. I recommended that a left total knee replacement be performed. The patient understands the risks of surgery, which include but not limited to: bleeding, infection, re-operation, damage to nerves and arteries, continued knee pain, knee stiffness, DVT, and . The patient understands all of these instructions and explanations, all of his questions have been satisfactorily addressed and the patient has elected to proceed. Informed consent was signed. Description of Procedure IMPLANTS: 1. Femur: Triathlon #3 Left PS. 2. Tibia: Triathlon #2 [place]. 3. Insert: Triathlon #2 x 9 mm PS X3 poly. 4. Patella: Triathlon A29 x 9 mm X3 poly. 5. Palacoderrick Saavedra PA-C is assisting with positioning , retracting, and closure due to fellow not available. PROCEDURE: The patient was taken to the Operating Room and placed in the supine position after spinal and adductor canal nerve block was administered. My initials and a multidisciplinary time-out were used to identify the left leg as the correct operative limb. A tourniquet was placed high in the thigh. Prior to the incision, 2 grams of intravenous Ancef were given. The left leg was then prepped and draped in a standard sterile fashion. An Esmarch was used to exsanguinate the leg and the tourniquet was inflated to 250 mmHg. The planned mid-line 20 cm incision was created exposing the extensor mechanism. The medial parapatellar arthrotomy was made and the patella was everted. The patella was addressed first. It was prepared by reaming from 20 mm down to 12 mm. An A29 button was found to fit best. The peg holes were made in the standard fashion. The femur was addressed next and the guide kailyn was placed intramedullary. The initial cutting block was placed with 5 degrees of valgus and removing 8 mm for the distal cut. The cut was made and the 4-in-1 cutting block for a size 3 femur was placed. These cuts and the cuts to place the box were made in the standard fashion. Our attention was then drawn to the tibia cut with the external cutting guide, taking 4 mm from the medial low side. There was sufficient extension and flexion gap to fit a 9 mm spacer. A #2 Tibial baseplate fit well. A trial with a 9 mm spacer showed excellent stability in both flexion and extension, with good ligament balance. Range of motion of 0-125 degrees. The tibial baseplate was pinned and the final preparation for the keel and stem was made. All the trial components were tested again, with good stability and thumbs free tracking of the patella. All components were removed. The tourniquet was deflated. Hemostasis was obtained. 90 ml of total knee cocktail were injected into the soft tissues and periosteum. A bone plug was placed in the femur and covered with bone wax. After a 15 minute break, the limb was exsanguinated again and the tourniquet was re-inflated. All surfaces were copiously irrigated prior to placement of the components. The femoral component and Tibial baseplate were placed with the first batch of cement and the 9 mm X3 poly was placed. During the second batch of cement the patellar button was placed. Again the range of motion and stability were unchanged. The extensor mechanism was closed with 1-0 and 0 Vicryl with the knee bent approximately 60 degrees in a standard fashion. The peritenon and deep fascia was closed with 2-0 Vicryl. The subcutaneous layer was closed with 3-0 Vicryl. The skin was closed with Zipline. The limb was cleaned and dried. 4x4 dressing was placed over top followed by ABDs, sterile Webril, and a foot to thigh Jamie bandage. The patient was then transferred to the Recovery Room in stable condition. The sponge and needle counts were correct. POST-OP INSTRUCTIONS: The patient will be WBAT. The patient will be admitted to the hospital. The patient will use the knee immobilizer when ambulating and standing until good quad control is achieved. Labs will be obtained during the stay. DVT prophylaxis will included aspirin for 6 weeks, TEDs, and mechanical foot pumps. The dressing will be changed prior to their discharge or postop day #2 and covered with a Silverlon dressing, whichever comes first. I attest to the content of the Intraoperative Record and any orders documented therein. Any exceptions are noted below.
[2020-02-12] MEDS ORDERED: diphenhydrAMINE 50 MG/ML VIAL IV PRN (10:12)
[2020-02-12] MEDS ORDERED: MAGNESIUM HYDROXIDE SUSP 30 ML UDC PO PRN (10:12)
[2020-02-12] MEDS ORDERED: traMADol HCL 50 MG TABLET PO PRN (10:12)
[2020-02-12] MEDS ORDERED: ONDANSETRON INJ 2 MG/ML 2 ML VIAL IV PRN (10:12)
[2020-02-12] MEDS ORDERED: bisacodyL 10 MG SUPP PR PRN (10:12)
[2020-02-12] MEDS ORDERED: HYDROmorphone INJ 1 MG/ML SYRINGE IV PRN (10:12)
[2020-02-12] MEDS ORDERED: NALOXONE HCL 0.4 MG/1 ML VIAL/CARP IV PRN (10:12)
[2020-02-12] MEDS ORDERED: diphenhydrAMINE Capsule 25 MG CAP PO PRN (10:12)
[2020-02-12] MEDS ORDERED: METOCLOPRAMIDE HCL INJ 5 MG/ML 2 ML VIAL IV PRN (10:12)
[2020-02-12] MEDS ORDERED: ACETAMINOPHEN 500 MG TAB PO PRN (10:18)
--- NOTE | 2020-02-12 10:26 | Operative Report ---
Post Operative Report Pre & Post Diagnosis Operation Date: 02/12/20 07:00 Pre-Op Diagnosis: Left Knee Degenerative Joint Disease Post-Op Diagnosis: Left Knee Degenerative Joint Disease I identified the patient and participated in the time-out.: Yes Procedure Operation Date: 02/12/20 07:00 Actual Procedures p Left Total Knee Arthroplasty(Left) - Evaristo Butterfield MD Surgeon Evaristo Butterfield Gis Software Engineer Trish Saavedra PA-C (No fellow avail) Estimated Blood Loss 75 Findings Consistent with Post-Op Diagnosis Specimens bone and soft tissue Complications none Description of Procedure See Dr Butterfield operative report for full details. I was engineer assistant during entire case to include prepping, draping, limb and instrument handling, wound closure, dressings. I attest to the content of the Intraoperative Record and any orders documented therein. Any exceptions are noted below.
--- NOTE | 2020-02-12 10:40 | XRay Report ---
XR knee LT 1 or 2V routine CLINICAL HISTORY: Surgical Post Op COMPARISON: 01/21/2020 DISCUSSION: There are postsurgical changes of a total left knee arthroplasty and patellar resurfacing . The femoral tibial components appear well seated. There is gas present within the soft tissues cons istent with recent surgery. THERE IS NO EVIDENCE FOR SOFT TISSUE SWELLING. IMPRESSION: Postsurgical changes of a total left arthroplasty. ACT 112: Negative or not required by law. Electronically signed by: Han Martinez M.D. 02/12/2020 10:38 AM
--- NOTE | 2020-02-12 11:26 | Anesthesiology Progress Note ---
Date of Service February 12, 2020 Anesthesia Post Procedure Vital Signs Vital Signs: Temp Pulse Pulse Resp BP Pulse Ox 02/12/20 11:15 82 17 99/55 L 92 02/12/20 11:00 82 16 128/66 92 02/12/20 10:45 81 17 122/94 94 02/12/20 10:30 36.5 C 82 17 150/72 H 97 02/12/20 10:20 84 15 119/64 94 02/12/20 10:14 36.1 C L 86 16 97/61 L 95 02/12/20 06:27 83 20 127/67 94 02/12/20 05:46 36.9 C 99 H 18 132/80 94 Transfer of Care Handoff Completed per policy Notes Mental Status: alert / awake / arousable and participated in evaluation Nausea / Vomiting: adequately controlled Pain: adequately controlled Airway Patency, RR, SpO2: stable & adequate BP & HR: stable & adequate Hydration State: stable & adequate Neuraxial Anesthesia: was administered and sensory block is resolving Anesthetic Complications: no major complications apparent and Pt Satisfied with anesthetic care
[2020-02-12] MEDS: SODIUM CHLORIDE 0.9% 1000ML 1,000 ML IV SCH ×2 (14:23→21:58)
[2020-02-12] MEDS: oxyCODONE HCL IR 5 MG TAB (IMMEDIATE RELEASE) PO PRN ×2 (15:50→22:01)
[2020-02-12] MEDS: ceFAZolin 2000MG 2,000 MG/15 ML SYR IV SCH ×2 (15:51→23:40)
--- NOTE | 2020-02-12 15:59 | Orthopedic Progress Note ---
Date of Service February 12, 2020 Assessment & Plan (1) Degenerative joint disease of left knee: POD 0 Left tkr Patient doing well. Continue regular diet Continue 24hr post-op IV abx Pain medication prn pain, encourage PO Ice to left knee as needed for pain WBAT L LE with walker, knee immobilizer x 48hrs post-op DVT prophylaxis, foot pumps, teds x 3wks, asa 81mg bid x 6wks DC planning: homehealth, hopes to go home tomorrow Present on Admission?: Yes Admission and Anticipated Discharge Date Admission Date: February 12, 2020 Anticipated date of discharge: 02/13/20 Subjective Patient in bathroom. Walked around the nurses station. Hasn't taken any pain medication as of yet. Had lunch. Denies CP, SOB, N/V, F/C/S. Physical Exam Physical Exam: Left knee immobilizer on. Patient ambulating with CG and walker. NV intact B LE. 5/5 B EHL, TA, gastroc strength. Calves soft. Results & Data ([facility]) Vital Signs (Past 12 Hours) Vital Signs Temp Pulse Pulse Pulse Resp BP Pulse Ox 02/12/20 15:29 36.6 C 76 18 103/67 91 02/12/20 13:28 85 18 111/61 92 02/12/20 12:46 83 18 111/61 92 02/12/20 12:02 77 18 115/77 93 02/12/20 11:43 36.6 C 81 16 114/62 92 02/12/20 11:30 36.6 C 81 16 114/62 92 02/12/20 11:15 82 17 99/55 L 92 02/12/20 11:00 82 16 128/66 92 02/12/20 10:45 81 17 122/94 94 02/12/20 10:30 36.5 C 82 17 150/72 H 97 02/12/20 10:20 84 15 119/64 94 02/12/20 10:14 36.1 C L 86 16 97/61 L 95 02/12/20 06:27 83 20 127/67 94 02/12/20 05:46 36.9 C 99 H 18 132/80 94
[2020-02-12] MEDS: FERROUS GLUCONATE 324 MG TAB PO SCH (17:45)
[2020-02-12] MEDS: ASCORBIC ACID 500 MG TAB PO SCH (17:46)
[2020-02-12] MEDS ORDERED: SENNA 8.6 MG TAB PO SCH (21:00)
[2020-02-12] MEDS ORDERED: ATORVASTATIN 20 MG TAB PO SCH (21:00)
[2020-02-12] MEDS: CeleBREX 200 MG CAP PO SCH (22:01)
[2020-02-12] MEDS: DOCUSATE SODIUM 100 MG CAP PO SCH (22:02)
[2020-02-13] MEDS: oxyCODONE HCL IR 5 MG TAB (IMMEDIATE RELEASE) PO PRN ×2 (02:01→05:53)
[2020-02-13] MEDS: LR 500ML BOLUS, THEN 15ML/HR IV SCH (05:08)
[2020-02-13 05:48] LABS: Hematocrit (blood only) 29.3 % (37-47); Hemoglobin 9.5 g/dL (12.0-16.0); Mean Corpuscular Hemoglobin 29.5 pg (25-34); Mean Corpuscular Hgb Conc 32.4 g/dL (32-36); Mean Platelet Volume 9.6 fL (7.4-10.4); Platelet Count 196 K/uL (130-400); RDW Coefficient of Variation 12.7 % (11.5-14.5); RDW Standard Deviation 42.2 fL (36.4-46.3); Red Blood Count 3.22 M/uL (4.2-5.4); White Blood Count 7.87 K/uL (4.8-10.8)
[2020-02-13 06:25] LABS: BUN Creatinine Ratio 12.9 (10-20); Calcium 8.3 mg/dl (8.5-10.1); Creatinine Clr Calc Pharmacy 73.2 ml/min; Est GFR (African American) 90.1; Est GFR (Non-African American) 77.8; Potassium 4.2 mmol/L (3.5-5.1)
[2020-02-13] MEDS: DOCUSATE SODIUM 100 MG CAP PO SCH (08:31)
[2020-02-13] MEDS: FERROUS GLUCONATE 324 MG TAB PO SCH (08:31)
[2020-02-13] MEDS: CeleBREX 200 MG CAP PO SCH (08:32)
[2020-02-13] MEDS: ASCORBIC ACID 500 MG TAB PO SCH (08:32)
[2020-02-13] MEDS ORDERED: DOCUSATE SODIUM 100 MG CAP PO SCH (09:00)
[2020-02-13] MEDS ORDERED: NON-FORMULARY MEDICATION (Inulin [Fiber Gummies] 2 gram Tablet,Chewable) PO SCH (09:00)
[2020-02-13] MEDS ORDERED: ASPIRIN 81 MG ECTAB PO SCH (09:00)
[2020-02-13] MEDS ORDERED: MULTIVITAMIN TAB PO SCH (09:00)
[2020-02-13] MEDS ORDERED: PANTOprazole 40 MG TAB PO SCH (09:00)
--- NOTE | 2020-02-13 14:38 | Discharge Summary ---
Date of Service February 13, 2020 Principal Diagnosis Left knee degenerative joint disease/osteoarthritis Discharge Data Allergies Allergy/AdvReac Type Severity Reaction Status Date / Time Penicillins Allergy Mild RASH Verified 02/12/20 05:42 Consultations 02/12/20 10:13 Consult Case Management - Discharge Planning Routine Procedures Performed Operation Date: 02/12/20 07:00 Actual Procedures p Left Total Knee Arthroplasty(Left) - Evaristo Butterfield MD Ordered Studies 02/12/20 05:00 US - OR guided needle placemen Routine Hospital Course (1) Degenerative joint disease of left knee: 59-year-old female underwent a left total knee arthroplasty by Dr. Butterfield on 02/12/2020. She tolerated spinal anesthetic . Surgery was without complic ation. She was admitted under observation to the floor for 24-hour IV antibiotics. On postop day 0, she was ambulating in the hallways with a walker and contact-guard with her left knee immobilizer donned. Her pain was controlled. She was tolerating p.o. diet and fluids. No issues with urinating. She slept well through the night. Postop day 1, vital signs stable, a.m. labs within normal limits, had a.m. physical therapy and Occupational Therapy. Able to ambulate with walker and knee immobilizer. Pain remained controlled with p.o. medication. Continued tolerating diet and no issues with urinating. No bowel movement, however no abdominal pain. Her postoperative dressings were removed, Silverlon dressing was applied which is waterproof. Denied fevers chills sweats chest pain shortness of breath lightheadedness dizziness nausea or vomiting. During hospital stay DVT prophylaxis consisted of knee-high REY hose foot pumps and aspirin 81 mg twice a day. On postop day 1 patient anxious to be discharged home with home health physical therapy. She was deemed stable to discharge. She was discharged home with her with home health physical therapy. She was advised to continue to wear the knee immobilizer for another 24 hours while ambulating. The Silverlon dressing will remain on until her 2- week postop appointment, this is waterproof. DVT prophylaxis to consist of REY hose until her follow-up appointment, as well as aspirin 81 mg twice a day for 6 weeks. She was also recommended to rely on [id number] Tylenol 1000 mg every 6 hours for mild to moderate pain. Tramadol was E prescribed to her pharmacy for severe pain, she requested this over oxycodone. A prescription for vitamin C was also sent to her pharmacy to take for 2 weeks. Patient is schedul ed to follow-up at our office, on 1215 at 11:15 AM. Please see below for further discharge instructions. Patient advised to contact the office with any further problems questions or concerns. Total Time Total Time Spent Total Time Spent (In Minutes): 20 Discharge Plan Discharge Items Patient Disposition: Home - Home Health Services Reason For Visit: Left Knee OA Discharge Diagnosis: Left Knee Osteoarthritis Condition on Discharge: Good Activity: Per Instructions section Lifting: Wait until after follow-up appointment Bathing: Keep incision dry Exercise/Sports: Wait until after follow-up appointment Weightbearing: Full weightbearing Non-emergency contact: Surgeon Call non-emergency contact if: your pain is not controlled, your temperature is above 101.5, your wound has increased redness and your wound has increased drainage Follow-up/Referrals: Awais Saab MD [Primary Care Provider] - Molly Saavedra P.A.-C. [Physician Aircraft Riveter] - 02/27/20 11:15 am Diet: Regular Addtl Attending Provider Instructions: Post-operative Instructions Pain Expect to be in a fair amount of pain after surgery. Remember, our goal is not to eliminate your pain, but to make it tolerable. It is a good idea to stay ahead of your pain by taking the medications you were prescribed once you get home. Typically, the pain starts improving 3-7 days after surgery. You should start weaning off the narcotic pain medication (oxycodone) as soon as your pain improves. Please call our office if your pain is not adequately controlled. You can take tylenol 1000mg every 8hrs for mild to moderate pain. Ice Ice your operative site at least 5 times a day for 15-30 minutes at a time. Make sure you have a thin cloth between the ice or cooling unit and your skin to prevent ellison bite. This is especially important if you received a nerve block. Continue icing your operative site for the first 5-7 days after surgery, then as needed. Diet/Nausea/Vomiting Start by drinking clear liquids and eating crackers. If you can tolerate this, then you may resume your normal diet. If you feel nauseated or vomit, take Zofran/ondansetron (if prescribed). Please call our office if you have intractable nausea or vomiting, or, if after hours, you may go to the Emergency Room for help. Constipation Constipation is a common side effect of narcotic pain medication. If you have not had a bowel movement within 2 days after surgery, we recommend purchasing an over the counter laxative such as Milk of Magnesia, Dulcolax, or Miralax from a local pharmacy, and taking it as instructed. Call our clinic if any questions. Weight bearing and Range of Motion. Weightbearing as tolerated with walker. No restrictions with range of motion. *KNEE IMMOBILIZER x 48hrs AFTER SURGERY WHILE AMBULATING AND THEN CAN STOP (CONTINUE IF YOU DO NOT HAVE GOOD QUAD CONTROL)* Physical therapy Initially you will start with home health physical therapy. At our first visit with at our office we will provide you with script for outpatient physical therapy. Wound care and showering We will inspect your wound at your first post-operative visit, and may do a dressing change at that time. Most patients will be in a water-proof dressing that is removed 14 days after surgery. It is normal to see some dried blood on the dressing. Do not remove your dressing, paper strips or sutures yourself unless you are given permission. Showering is allowed the day after surgery. Do not scrub or remove any dressings. The wound should not be submerged underwater (i.e. in a bathtub or pool) until 4 weeks after surgery REY stockings If you were given white stockings, these are to be worn at all times except to shower and sleep (on both legs) for the first 2 weeks after surgery. We will discuss removal at your first follow-up appointment. Driving You may not drive while taking narcotic pain medication. We will discuss return to driving at your first follow-up appointment. Return To Work Your return to work depends on what surgery was done and what type of work you do. Please bring any paperwork your employer needs completed to your first post-operative visit. Also, bring a description of your job duties, as this helps us to understand what risks you may face at work. Travel Avoid long distance travel (greater than 1 hour) in airplanes and cars for the first 6 weeks after surgery if possible. If you must travel, please let us know so we can discuss additional measures to prevent blood clots. Follow-up You should have a follow-up appointment already scheduled for 2 weeks after surgery. If not, please contact our office to make this appointment before you leave the hospital. When to call the office [phone] It is normal to have swelling and bruising in the limb that was operated on. This will improve with time. It is also normal to have fevers for the first 2 days after surgery. Reasons you should call your doctor include: Uncontrolled pain; Nausea, vomiting, or constipation that does not improve with medication; Fevers over 101.5, chills, sweats; Drainage or bleeding from the wound; Foul odor; Spreading areas of redness; Any other concerns. NEW MEDICATIONS: new medications will be sent to your pharmacy: tramadol, vit c, tylenol, aspirin. Pending Studies at Discharge: No Stand-Alone Forms: My [facility] Portalarium, Opioid Pain Management, Smoking Cessation Medications and DC Order Prescriptions: New acetaminophen 500 mg Tablet 1,000 mg PO Q6H PRN (Reason: pain) Qty: 60 RF: 0 aspirin 81 mg Tablet,Delayed Release (Dr/Ec) 81 mg PO BID 42 Days Qty: 84 RF: 0 tramadol 50 mg Tablet 50 - 100 mg PO Q4H PRN (Reason: pain) Qty: 30 RF: 0 ascorbic acid (vitamin C) [Vitamin C] 500 mg Tablet 500 mg PO BIDM 14 Days Qty: 28 RF: 0 Continued omeprazole 40 mg capsule,delayed release(DR/EC) 40 mg PO QAM Qty: 90 RF: 3 atorvastatin 20 mg tablet 20 mg PO PM Qty: 90 RF: 3 docusate sodium [Stool Softener] 100 mg Capsule 2 tab PO QAM RF: 0 Centrum Silver Women 8 mg iron-400 mcg-300 mcg Tablet 1 tab PO QAM RF: 0 Fiber Gummies 2 gram Tablet,Chewable 2 g PO QAM RF: 0 celecoxib [Celebrex] 200 mg Capsule 200 mg PO BID RF: 0 biotin 1 mg Capsule 1 mg PO DAILY RF: 0 turmeric 400 mg Capsule 400 mg PO QAM RF: 0 Discontinued aspirin [Aspirin Low Dose] 81 mg Tablet,Delayed Release (Dr/Ec) 81 mg PO QAM RF: 0 Discharge Orders: Discharge Order (Routine); Ordered 02/13/20 Ordered By: David Guthrie/Other Patient Handouts: Preventing Deep Vein Thrombosis Admission Data Admit Date/Time: 02/12/20 10:13 Attending Provider: Evaristo Butterfield Admit Provider: Evaristo Butterfield Primary Care Provider: Awais Saab Other Providers: [facility],Home Healthcare Other Interventions: Discharge Summary Assessment (RN) Last Done: 02/13/20 10:01
== END 2020-02-13 14:07 | disposition home health service (06) ==
LOC: 3E 05:14 → ASU 05:14